=== PATIENT | female | born 1940 | race Caucasian/White ===

== ENCOUNTER 2019-02-23 10:04 | Emergency (ER) | payer OTHER ==
[~2019-02-23] VITALS: Ht 160 cm; Wt 77.3 kg
[2019-02-23] MEDS ORDERED: HYDR25TAB PO (10:53)
[2019-02-23] MEDS ORDERED: CVS500CA5 PO (10:53)
[2019-02-23] MEDS ORDERED: PRESCAP PO (10:53)
[2019-02-23] MEDS ORDERED: ALPR2TAB3 PO (10:53)
[2019-02-23] MEDS ORDERED: D-40TAB2 PO (10:53)
[2019-02-23] MEDS ORDERED: CITA20TA6 PO (10:53)
--- NOTE | 2019-02-23 11:04 | REP ---
Clinical: Trauma . Findings: Age-related atrophy and microvascular ischemic changes are appreciated. The ventricles and sulci are symmetric. Lara-white differentiation is maintained. There is no evidence for acute intracranial hemorrhage, mass/mass effect, pathology or infarction. No extra-axial fluid collection. Calvarium is intact. Paranasal sinuses and mastoid air cells are clear. Impression: Age related atrophy and microvascular ischemic changes. No acute intracranial hemorrhage, infarction, or mass/mass effect. Electronically Signed by Dawit Shepherd MD 02/23/2019 10:54 A
[2019-02-23] MEDS ORDERED: ALPRAZolam 0.5 MG TAB PO ONE (11:30)
[2019-02-23] MEDS ORDERED: BACIOIN5 OP (12:03)
[2019-02-23 13:02] VITALS: BP 156/69
== END 2019-02-23 13:15 | disposition home or self-care (01) ==
LOC: EDBD 10:04 → M ED 10:04
DX: S01.01XA Laceration without foreign body of scalp, initial encounter (principal); W22.8XXA Striking against or struck by other objects, initial encounter; Y92.018 Other place in single-family (private) house as the place of occurrence of the external cause; I10 Essential (primary) hypertension; F41.9 Anxiety disorder, unspecified; Z79.899 Other long term (current) drug therapy; Z88.0 Allergy status to penicillin; Z88.7 Allergy status to serum and vaccine; Z87.891 Personal history of nicotine dependence

== ENCOUNTER 2019-04-02 20:13 | Emergency (ER) | payer OTHER ==
[~2019-04-02] VITALS: Ht 160 cm; Wt 81.8 kg
[~2019-04-02 20:13] MED LIST: ALPR2TAB3 PO; BACIOIN5 OP; CITA20TA6 PO; CVS500CA5 PO; D-40TAB2 PO; HYDR25TAB PO; PRESCAP PO
[2019-04-02] MEDS ORDERED: PRES10CA2 PO (20:31)
--- NOTE | 2019-04-02 22:28 | REPVR ---
EXAM: CT Head Without Contrast EXAM DATE/TIME: 04/02/2019 9:25 PM CLINICAL HISTORY: 79 years old, female; Injury or trauma; Fall; Initial encounter; Concussion / head injury; Additional info: Fall, head injury TECHNIQUE: Imaging protocol: Computed tomography images of the head without contrast. Radiation optimization: All CT scans at this facility use at least one of these dose optimization techniques: automated exposure control; mA and/or kV adjustment per patient size (includes targeted exams where dose is matched to clinical indication); or iterative reconstruction. COMPARISON: CT Head without contrast 02/23/2019 10:33 AM FINDINGS: Brain: There is mild prominence of the peripheral sulci. Ventricles: There is mild prominence of the central ventricular system. Bones/joints: Unremarkable. No acute fracture. Sinuses: Visualized sinuses are unremarkable. No fluid levels. Mastoid air cells: Visualized mastoid air cells are well aerated. No mastoid effusion. Soft tissues: Unremarkable. IMPRESSION: There has been little change from 02/23/2019 with mild atrophic change. No acute interval intracranial process is identified. Electronically signed by: Juan West On 04/02/2019 22:28:06 PM
--- NOTE | 2019-04-02 22:38 | REPVR ---
EXAM: CT Cervical Spine Without Contrast EXAM DATE/TIME: 04/02/2019 9:25 PM CLINICAL HISTORY: 79 years old, female; Injury or trauma; Fall; Initial encounter; Concussion /head injury; Additional info: Fall, head injury TECHNIQUE: Imaging protocol: Computed tomography images of the cervical spine without contrast. Coronal and sagittal reformatted images were created and reviewed. Radiation optimization: All CT scans at this facility use at least one of these dose optimization techniques: automated exposure control; mA and/or kV adjustment per patient size (includes targeted exams where dose is matched to clinical indication); or iterative reconstruction. COMPARISON: No relevant prior studies available. FINDINGS: Vertebrae: No acute fracture. Normal alignment. C2-C3: Slight interspace narrowing with mild anterolisthesis with bilateral degenerative changes of the apophyseal joints. There is borderline left neural foraminal stenosis. C3-C4: Mild interspace narrowing with slight anterolisthesis and right paracentral posterior osteophytes and bilateral degenerative changes of apophyseal joints and right uncovertebral joints. There is slight narrowing of the right lateral recess with borderline spinal stenosis and mild right neural foraminal stenosis. C4-C5: Slight interspace narrowing with mild anterolisthesis and posterior central protrusion of the disc and bilateral degenerative changes. There is mild central canal stenosis and moderate right and mild left neural foraminal stenosis. C5-C6: Moderate interspace narrowing with moderate posterior osteophytes centered in the right of midline and bilateral degenerative changes. There is mild central canal stenosis centered to the right and mild right and borderline left neural foraminal stenosis. C6-C7: Ankylosis of the interspace and left apophyseal joints with minimal residual osteophytes and bilateral degenerative changes. There is mild right neural foraminal stenosis. C7-T1: Moderate interspace narrowing with no spinal or foraminal stenosis. There is ankylosis of the right apophyseal joints. Soft tissues: Unremarkable. Lungs: Lung apices are normal. IMPRESSION: 1. Multilevel degenerative changes with varying degrees of spinal and neural foraminal stenosis. 2. No acute fracture or subluxation. Electronically signed by: Juan West On 04/02/2019 22:38:32 PM
[2019-04-02] MEDS ORDERED: ACETAMINOPHEN TAB 650MG DOSE (2X325MG) PO ONE (23:00)
[2019-04-02 23:06] VITALS: O2SAT 99
[2019-04-02 23:32] VITALS: BP 142/76
--- NOTE | 2019-04-03 00:52 | REP ---
Clinical: Trauma. Technique: AP view of the pelvis with neutral and frog lateral views of the left hip. Findings: Age-related arthritic degenerative changes are appreciated. No acute fracture or dislocation identified. Impression: No acute fracture or dislocation. Electronically Signed by Dawit Shepherd MD 04/03/2019 12:44 A
== END 2019-04-02 23:38 | disposition home or self-care (01) ==
LOC: M ED 20:13
DX: S79.912A Unspecified injury of left hip, initial encounter (principal); S09.90XA Unspecified injury of head, initial encounter; S49.92XA Unspecified injury of left shoulder and upper arm, initial encounter; W18.39XA Other fall on same level, initial encounter; Y92.013 Bedroom of single-family (private) house as the place of occurrence of the external cause; I10 Essential (primary) hypertension; F41.1 Generalized anxiety disorder; Z88.0 Allergy status to penicillin; Z88.7 Allergy status to serum and vaccine

== ENCOUNTER → 2020-08-20 | Outpatient (CLI) | payer MEDICARE ==
[~2020-08-20] MED LIST changes: +ASPI81TA86 PO; +CLON1TAB17 PO; +D400400C PO; +FLUO40CA PO; +PRES10CA2 PO; +VITA400T15 PO
[2020-08-20 16:51] LABS: ALBUMIN 3.8 GM/DL (3.2-5.2); BILIRUBIN,TOTAL 0.4 MG/DL (0.2-1.0); CALCIUM LEVEL 9.4 MG/DL (8.8-10.2); CREATININE FOR GFR 2.02 MG/DL (0.55-1.30); GLOMERULAR FILTRATION RATE 25.4 (>39); POTASSIUM SERUM 5.1 MEQ/L (3.5-5.1); THYROID STIMULATING HORMONE 2.55 uIU/ML (0.358-3.740); TOTAL PROTEIN 7.5 GM/DL (6.4-8.2)
[2020-08-20 16:58] LABS: BASO # 0.1 10^3/uL (0.0-0.2); BASO % 0.6 % (0.0-1.0); EOS # 0.2 10^3/uL (0.0-0.5); EOS % 1.4 % (0.0-3.0); HEMATOCRIT 39.6 % (36.0-47.0); HEMOGLOBIN 12.4 g/dl (12.0-15.5); LYMPH # 1.4 10^3/uL (1.5-5.0); LYMPH % 11.6 % (24.0-44.0); MEAN CORPUSCULAR HGB CONC 31.3 g/dl (32.0-36.5); MEAN CORPUSCULAR VOLUME 95.7 fl (80.0-96.0); MONO # 0.9 10^3/uL (0.0-0.8); MONO % 7.4 % (0.0-5.0); NEUTROPHILS # 9.7 10^3/uL (1.5-8.5); NEUTROPHILS % 78.4 % (36.0-66.0); PLATELET COUNT, AUTOMATED 795 10^3/uL (150-450); RED BLOOD COUNT 4.14 10^6/uL (4.00-5.40); WHITE BLOOD COUNT 12.3 10^3/uL (4.0-10.0)
== END ==
LOC: M WUC 13:23
PROVIDERS: ATTEND Family Medicine
DX: R42 Dizziness and giddiness (principal); R44.2 Other hallucinations; Z79.899 Other long term (current) drug therapy

== ENCOUNTER 2020-08-27 12:52 | Inpatient (IN) | payer MEDICARE ==
[~2020-08-27] VITALS: Ht 154.9 cm; Wt 79.9 kg
--- NOTE | 2020-08-27 13:12 | REP ---
INDICATION: ams COMPARISON: 04/02/2019 TECHNIQUE: Axial noncontrast images from the skull base to the thoracic inlet with coronal reformations. This CT examination was performed using the following dose reduction techniques: Automated exposure control, adjustment of mA and/or kv according to the patient's size, and use of iterative reconstruction technique. FINDINGS: Age-related atrophy and microvascular ischemic changes are appreciated. The ventricles and sulci are symmetric. Lara-white differentiation is maintained. There is no evidence for acute intracranial hemorrhage, mass/mass effect, pathology or infarction. No extra-axial fluid collection. Calvarium is intact. Paranasal sinuses and mastoid air cells are clear. IMPRESSION: Age related atrophy and microvascular ischemic changes. No acute intracranial hemorrhage, infarction, or mass/mass effect. <Electronically signed by Dawit Shepherd > 08/27/20 [id number]
--- NOTE | 2020-08-27 13:14 | REP ---
INDICATION: trauma. COMPARISON: April 02, 2019.. TECHNIQUE: Helical scanning is acquired and overlapping 2 mm high resolution axial images were generated and reviewed at bone and soft tissue window settings. Coronal and sagittal multiplanar re-formations images are generated. FINDINGS: There is no evidence of cervical spine element fracture. No skull base fracture is seen. Cervical vertebral body heights are preserved. Alignment is normal. Facet joints are normally aligned bilaterally at each cervical level on multiplanar re-formations images. There is no evidence of intraspinal or paraspinal hematoma. No extra vertebral abnormality is seen. There are fairly advanced degenerative disc and facet changes. Degenerative disc disease most pronounced at C5-6 and C6-7 as on earlier study. There is osteoarthritic facet hypertrophy throughout the mid cervical spine bilaterally. There is straightening. No significant change from the comparison study April 02, 2019. At C5-6 there is central disc calcification which appears to impinge on the spinal canal. There is bilateral neural foraminal narrowing from uncovertebral spurring. IMPRESSION: No traumatic abnormality noted. Fairly advanced degenerative spondylosis changes stable from April 02, 2019.. <Electronically signed by Jalen Kelly > 08/27/20 [id number]
[2020-08-27 13:32] LABS: VENOUS HCO3 23.8 MEQ/L (23.0-27.0); VENOUS O2 SATURATION 77.5 % (60.0-80.0); VENOUS PARTIAL PRESSURE CO2 44.7 mmHg (38.0-50.0); VENOUS PARTIAL PRESSURE O2 42.2 mmHg (30.0-50.0); VENOUS PH 7.345 UNITS (7.330-7.430); VENOUS STANDARD HCO3 22.3 MEQ/L; VENOUS TOTAL CO2 25.2 MEQ/L (24.0-28.0)
[2020-08-27 13:35] LABS: BASO # 0.1 10^3/uL (0.0-0.2); BASO % 0.3 % (0.0-1.0); HEMATOCRIT 41.7 % (36.0-47.0); LYMPH # 0.8 10^3/uL (1.5-5.0); LYMPH % 3.8 % (24.0-44.0); MEAN CORPUSCULAR HEMOGLOBIN 29.1 pg (27.0-33.0); MEAN CORPUSCULAR HGB CONC 31.2 g/dl (32.0-36.5); MEAN CORPUSCULAR VOLUME 93.5 fl (80.0-96.0); MONO # 1.3 10^3/uL (0.0-0.8); MONO % 6.6 % (0.0-5.0); NEUTROPHILS # 17.7 10^3/uL (1.5-8.5); NEUTROPHILS % 88.7 % (36.0-66.0); PLATELET COUNT, AUTOMATED 969 10^3/uL (150-450); RED BLOOD COUNT 4.46 10^6/uL (4.00-5.40); WHITE BLOOD COUNT 19.9 10^3/uL (4.0-10.0)
--- NOTE | 2020-08-27 13:51 | REP ---
INDICATION: Altered Mental Status. COMPARISON: No comparison study. TECHNIQUE: Portable upright AP chest radiograph. FINDINGS: The lungs are well inflated and free of infiltrate. Pleural angles are sharp. Heart size is normal. Pulmonary vasculature is not increased. There is mild bibasilar interstitial fibrosis. The aorta is tortuous. There are osteoarthritic changes in the glenohumeral joints bilaterally. IMPRESSION: No active disease. <Electronically signed by Jalen Kelly > 08/27/20 [id number]
[2020-08-27 14:14] LABS: OSMOLALITY SERUM 308 MOSM/KG (280-301)
[2020-08-27 14:20] LABS: ACETAMINOPHEN LEVEL < 2.0 UG/ML (10.0-30.0); ALBUMIN 3.7 GM/DL (3.2-5.2); ALT/SGPT 39 U/L (12-78); BILIRUBIN,DIRECT 0.2 MG/DL (0.0-0.2); BILIRUBIN,TOTAL 0.7 MG/DL (0.2-1.0); BLOOD UREA NITROGEN 36 MG/DL (7-18); CALCIUM LEVEL 9.6 MG/DL (8.8-10.2); CARBON DIOXIDE LEVEL 28 MEQ/L (21-32); CHLORIDE LEVEL 105 MEQ/L (98-107); CPK CREATINE PHOSPHOKINASE 858 U/L (26-192); CREATININE FOR GFR 1.25 MG/DL (0.55-1.30); ETHYL ALCOHOL (ETHANOL) < 0.003 % (0.000-0.010); GLOMERULAR FILTRATION RATE 44.1 (>39); GLUCOSE, FASTING 117 MG/DL (70-100); POTASSIUM SERUM 4.6 MEQ/L (3.5-5.1); SALICYLATE LEVEL 1.8 MG/DL (5.0-30.0); SODIUM LEVEL 142 MEQ/L (136-145); THYROID STIMULATING HORMONE 0.861 uIU/ML (0.358-3.740); TOTAL PROTEIN 7.5 GM/DL (6.4-8.2)
[2020-08-27 14:31] LABS: AMPHETAMINES LEVEL URINE NEGATIVE (NEGATIVE); BARBITURATES URINE NEGATIVE (NEGATIVE); BENZODIAZEPINES URINE NEGATIVE (NEGATIVE); CANNABINOIDS URINE NEGATIVE (NEGATIVE); COCAINE METABOLITE URINE NEGATIVE (NEGATIVE); METHADONE URINE NEGATIVE (NEGATIVE); OPIATES URINE NEGATIVE (NEGATIVE); PHENCYCLIDINE URINE NEGATIVE (NEGATIVE)
[2020-08-27] MEDS ORDERED: NS 1,000 ML IV SCH (15:15)
[2020-08-27] MEDS ORDERED: FLUO20CA22 PO (15:18)
[2020-08-27] MEDS ORDERED: D400400C PO (15:18)
[2020-08-27] MEDS ORDERED: KETO2CR TOP (15:18)
[2020-08-27 15:55] LABS: RSV AMPLIFICATION NEGATIVE (NEGATIVE)
[2020-08-27] MEDS ORDERED: CEFD1CAP8 PO (16:52)
[2020-08-27] MEDS ORDERED: ASPI81TA26 PO (16:52)
[2020-08-27] MEDS ORDERED: CLON0.5T2 PO (16:52)
--- NOTE | 2020-08-27 18:01 | REP ---
INDICATION: fall. COMPARISON: Comparison pelvic radiograph is from April 02, 2019.. TECHNIQUE: Single AP radiograph, portably obtained. FINDINGS: The bony pelvic ring is intact. No fracture is seen. There is diffuse osteopenia. Femoral heads are smooth and rounded. Hip joint spaces are preserved. No hip fracture is seen. There are degenerative disc and osteoarthritic facet changes in the lumbar spine. Sacrum appears intact. The visualized bowel gas pattern is unremarkable. IMPRESSION: No traumatic abnormality noted. <Electronically signed by Jalen Kelly > 08/27/20 [id number]
[2020-08-27] MEDS: NS 1,000 ML IV SCH ×2 (18:20→23:37)
[2020-08-27 22:00] VITALS: BP 155/74
--- NOTE | 2020-08-27 22:51 | HPEPDOC ---
General Date of Admission 08/27/20 Date of Service: Aug 27, 2020 Chief Complaint The patient is a 80-year-old female admitted with a reason for visit of Neuro Symptoms. 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 For EMS she was awake and alert to only name. As per niece she has been having hallucinations auditory and visual for about 1 week. In the ED she was hypothermic on arrival , confused knew only her name . For me she knew she was in the hospital could not tell me where or what her home address was. She could not tell me what had happened at home. She thinks she is living with her and asked about her mother in law and her mother. She thinks there has been an accident and something had happened to them. She was following simple commands and answering simple questions but her answers were unreliable. As per daughter she spoke to patient on Wednesday. Yesterday night she could not get hold of her so she this morning and there was no answer so patient's sister in law went to check on her. As per daughter due to her hallucination over the last 1 to 2 weeks she was check ed found to have an UTI and treated with Cefdinir from 08/20/20. She was admitted for Acute metabolic encephalopathy. Home Medications Scheduled Aspirin (Aspirin EC) 81 Mg Tablet.dr, 81 MG PO DAILY, (Reported) Cefdinir (Cefdinir) 300 Mg Capsule, 300 MG PO DAILY, (Reported) FOR 10 DAYS, FILLED 08/20 Cholecalciferol (Vitamin D3) (Vitamin D3) 10 Mcg Capsule, 800 UNITS PO DAILY, (Reported) Clonazepam (Clonazepam) 0.5 Mg Tablet, 0.5 MG PO DAILY, (Reported) Cranberry Fruit Extract (Cranberry) 500 Mg Capsule, 500 MG PO DAILY, (Reported) Fluoxetine Hcl (Fluoxetine HCl) 20 Mg Capsule, 20 MG PO DAILY, (Reported) Allergies Coded Allergies: Tetanus Vaccines and Toxoid (Verified Allergy, Mild, entire arms swells, 02/23/19) Penicillins (Verified Adverse Reaction, Mild, vomiting, 02/23/19) Past Medical History Medical History 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 Patient had refused bone marrow biopsy. Chronic kidney disease Hypertension. Chronic kidney disease Hypertension. Macular degeneration Anxiety. 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 Parkinson Surgical History tonsillectomy cervical surgery in [address] [facility] Family History The patient's father at the age of approximately 55 from organic heart disease. The patient's mother at the age of 55 from a motor vehicle trauma. The patient has one daughter who is healthy. Social History * Smoker: former Smoker Alcohol: Denies Drugs: denies A-FIB/CHADSVASC A-FIB History Current/History of A-Fib/PAF?: No Review of Systems Constitutional: Reports: Weakness; Denies: Chills, Fever, Night Sweats Eyes: Denies: Pain, Vision change ENT: Denies: Head Aches, Ear Pain, Dysphagia Skin: Denies: Rash, Lesions, Breakdown Pulmonary: Denies: Dyspnea, Cough Cardiovascular: Denies: Chest Pain, Palpitations, Orthopnea, Paroxysmal Noc. Dyspnea, Lt Headedness Gastrointestinal: Denies: Nausea, Vomiting, Abdominal Pain, Diarrhea Genitourinary: Denies: Dysuria, Frequency, Incontinence, Retention Hematologic: Denies: Bruising, Bleeding Excessively Musculoskeletal: Reports: Back Pain, Shoulder Pain Neurological: Reports: Confusion Psych: Reports: Memory Issues Physical Examination General Exam: Positive: Alert, Cooperative, No Acute Distress, Other (confused ) Eye Exam: Positive: PERRLA, Conjunctiva & lids normal, EOMI; Negative: Sclera icteric ENT Exam: Positive: Pharynx Normal, Tongue Midline, Other ENT (dry mucous membranes. ) Neck Exam: Positive: Supple; Negative: JVD, thyromegaly Chest Exam: Positive: Clear to auscultation, Normal air movement Heart Exam: Positive: Rate Normal, Regular Rhythm, Normal S1, Normal S2; Negative: Murmurs, Rubs Abdomen Exam: Positive: Normal bowel sounds, Soft; Negative: Tenderness, Hepatospenomegaly Extremity Exam: Positive: Edema, Normal pulses, Other (blister on toe); Negative: Clubbing, Cyanosis Neuro Exam: Positive: Normal Speech, Normal Tone, Other (tremors) Vital Signs Vital Signs Date Time Temp Pulse Resp B/P (MAP) Pulse Ox O2 Delivery O2 Flow Rate FiO2 08/27/20 15:01 97.1 87 20 113/59 (77) 97 Room Air Laboratory Data Labs 24H Laboratory Tests 2 08/27/20 13:22: Anion Gap 9, Glomerular Filtration Rate 44.1, Osmolality 308H, Calcium Level 9.6, Total Bilirubin 0.7, Direct Bilirubin 0.2, Aspartate Amino Transf (AST/SGOT) 65H, Alanine Aminotransferase (ALT/SGPT) 39, Alkaline Phosphatase 107, Total Creatine Kinase 858H, Total Protein 7.5, Albumin 3.7, Albumin/Globulin Ratio 1.0L, Thyroid Stimulating Hormone (TSH) 0.861, Salicylates Level 1.8L, Acetaminophen Level < 2.0L, Ethyl Alcohol Level < 0.003 08/27/20 13:23: Immature Granulocyte % (Auto) 0.6, Neutrophils (%) (Auto) 88.7H, Lymphocytes (%) (Auto) 3.8L, Monocytes (%) (Auto) 6.6H, Eosinophils (%) (Auto) 0.0, Basophils (%) (Auto) 0.3, Neutrophils # (Auto) 17.7H, Lymphocytes # (Auto) 0.8L, Monocytes # (Auto) 1.3H, Eosinophils # (Auto) 0.0, Basophils # (Auto) 0.1, Nucleated Red Blood Cells % (auto) 0.0, POC Glucose (Misc Panel) 118H, POC Sodium (Misc Panel) 142, POC Potassium (Misc Panel) 4.1, POC Chloride (Misc Panel) 105, POC Total CO2 (Misc Panel) 28.0H, POC Blood Urea Nitrogen (Misc Panel 35H, POC Ionized Calcium (Misc Panel) 4.7, POC Creatinine (Misc Panel) 1.1, POC Hematocrit (Misc Panel) 42.0, Blood Gas Bicarbonate Standard 22.3, Venous Blood pH 7.345, Venous Blood Partial Pressure CO2 44.7, Venous Blood Partial Pressure O2 42.2, Venous Blood Total Carbon Dioxide 25.2, Venous Blood HCO3 23.8, Venous Blood Oxygen Saturation 77.5, Venous Blood Base Excess -2.0, Lactic Acid Level 1.6, Ammonia < 10 08/27/20 13:25: POC Troponin I (Misc) 0.10H 08/27/20 13:34: Urine Color YELLOW, Urine Appearance CLEAR, Urine pH 5.0, Urine Specific [place] 1.012, Urine Protein 2+H, Urine Glucose (UA) NEGATIVE, Urine Ketones TRACEH, Urine Blood 2+H, Urine Nitrite NEGATIVE, Urine Bilirubin NEGATIVE, Urine Urobilinogen 0.2, Urine Leukocyte Esterase NEGATIVE, Urine WBC (Auto) 1, Urine RBC (Auto) 1, Urine Hyaline Casts (Auto) 0, Urine Bacteria (Auto) 1+H, Urine Squamous Epithelial Cells 0, Urine Mucus (Auto) SMALL, Urine Sperm (Auto) , Urine Opiates Screen NEGATIVE, Urine Methadone Screen NEGATIVE, Urine Barbiturates Screen NEGATIVE, Urine Phencyclidine Screen NEGATIVE, Urine Amphetamines Screen NEGATIVE, Urine Benzodiazepines Screen NEGATIVE, Urine Cocaine Metabolite Screen NEGATIVE, Urine Cannabinoids Screen NEGATIVE 08/27/20 14:57: Coronavirus (COVID-19)(PCR) NEGATIVE, Influenza Type A (RT-PCR) NEGATIVE, Influenza Type B (RT-PCR) NEGATIVE, Respiratory Syncytial Virus (PCR) NEGATIVE CBC/BMP Laboratory Tests 08/27/20 13:22 08/27/20 13:23 Microbiology Microbiology 08/27/20 Blood Culture, Received Pending 08/27/20 Blood Culture, Received Pending Assessment/Plan 80 year old female with h/o thrombocytosis, anxiety, macular degeneration, legally blind, 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 For EMS she was awake and alert to only name. As per sister in law she has been having hallucinations auditory and visual for about 1 to 2 weeks. She could not tell me what had happened at home. She thinks she is living with her and asked about her mother in law and her mother. She was following simple commands and answering simple questions but her answers were unreliable. As per daughter she spoke to patient on Wednesday night. Yesterday night she could not get hold of her so she called this morning and there was still no answer so patient's sister in law went to check on her. As per daughter due to her hallucinations over the last 1 to 2 weeks she was checked found to have an UTI and treated with Cefdinir from 08/20/20. She was admitted for Acute metabolic encephalopathy. Acute Metabolic encephalopathy No signs of infection noted though her WBC is high and she was hypothermic her cxr is clear her UA is jose maria rand she does not have any abdominal complaints. I think the elevated WBC and the hypothermia is reactive to laying on shonna floor 24 hours or more. Blood cultures have been ordered will follow. Sitter if needed. Rule out stroke in view of high platelet counts he is at high risk for thrombosis. MRI and MRA ordered. Continue ASA. Fall and rhabdomyolysis IVF. ? Dementia with possible parkinson's disease. Patient noted to have increasing tremors by family at rest and has stated having hallucinations. could have underlying parkinson's dementia. Macular degeneration/ legally blind fall risk. Thrombocytosis consulted Oncology recommended to start hydroxyurea 1000 mg daily with the goal to bring down the count to < 450. Abdominal US to check for liver and spleen size. will continue IVF Chronic kidney disease creatinine better than baseline. H/o Hypertension. not on any meds will monitor. Anxiety. will hold home meds. Tremors ? Parkinson's with possible dementia. Plan / VTE VTE Prophylaxis Ordered?: Yes ALIA BROCK MD Aug 27, 2020 16:20
[2020-08-27] MEDS: HYDROXYUREA 500 MG CAP PO SCH (23:13)
[2020-08-28 06:00] VITALS: BP 150/74
[2020-08-28 06:35] LABS: BASO # 0.1 10^3/uL (0.0-0.2); BASO % 0.4 % (0.0-1.0); EOS # 0.1 10^3/uL (0.0-0.5); EOS % 0.9 % (0.0-3.0); HEMATOCRIT 35.1 % (36.0-47.0); LYMPH # 1.3 10^3/uL (1.5-5.0); LYMPH % 9.3 % (24.0-44.0); MEAN CORPUSCULAR HEMOGLOBIN 29.3 pg (27.0-33.0); MEAN CORPUSCULAR HGB CONC 30.8 g/dl (32.0-36.5); MEAN CORPUSCULAR VOLUME 95.4 fl (80.0-96.0); MONO # 1.3 10^3/uL (0.0-0.8); MONO % 9.3 % (0.0-5.0); NEUTROPHILS % 79.5 % (36.0-66.0); RED BLOOD COUNT 3.68 10^6/uL (4.00-5.40); WHITE BLOOD COUNT 13.9 10^3/uL (4.0-10.0)
[2020-08-28 06:50] LABS: HEMOGLOBIN 10.8 g/dl (12.0-15.5)
[2020-08-28 06:51] LABS: PLATELET COUNT, AUTOMATED 740 10^3/uL (150-450)
[2020-08-28 07:07] LABS: BLOOD UREA NITROGEN 37 MG/DL (7-18); CALCIUM LEVEL 8.9 MG/DL (8.8-10.2); CARBON DIOXIDE LEVEL 27 MEQ/L (21-32); CHLORIDE LEVEL 111 MEQ/L (98-107); CREATININE FOR GFR 1.45 MG/DL (0.55-1.30); GLOMERULAR FILTRATION RATE 37.2 (>39); GLUCOSE, FASTING 78 MG/DL (70-100); POTASSIUM SERUM 4.4 MEQ/L (3.5-5.1); SODIUM LEVEL 144 MEQ/L (136-145)
--- NOTE | 2020-08-28 07:28 | ECGEPIP ---
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
--- NOTE | 2020-08-28 07:42 | IPNPDOC ---
Subjective Date Seen The patient was seen on 08/28/20. Subjective Chief Complaint/HPI Still confused and cannot remember the events of the past few days. Though more interactive and answers simple questions. Was calm and cooperative this morning but was agitated last night pulling out IVs. Objective Physical Examination General Exam: Positive: Alert, Cooperative, No Acute Distress, Other (confused ) Eye Exam: Positive: PERRLA, Conjunctiva & lids normal, EOMI; Negative: Sclera icteric ENT Exam: Positive: Pharynx Normal, Tongue Midline, Other ENT (dry mucous membranes. 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 For EMS she was awake and alert to only name. As per sister in law she has been having hallucinations auditory and visual for about 1 to 2 weeks. She could not tell me what had happened at home. She thinks she is living with her and asked about her mother in law and her mother. She was following simple commands and answering simple questions but her answers were unreliable. As per daughter she spoke to patient on Wednesday night. Yesterday night she could not get hold of her so she called this morning and there was still no answer so patient's sister in law went to check on her. As per daughter due to her hallucinations over the last 1 to 2 weeks she was checked found to have an UTI and treated with Cefdinir from 08/20/20. She was admitted for Acute metabolic encephalopathy. Acute Metabolic encephalopathy No signs of infection noted though her WBC is high and she was hypothermic her cxr is clear her UA is clear and she does not have any abdominal complaints. I think the elevated WBC and the hypothermia is reactive to laying on the floor 24 hours or more. WBC better today. Hypothermia resolved with warming blankets. Blood cultures have been ordered will follow. Sitter if needed. Rule out stroke in view of high platelet counts she is at high risk for thrombosis. MRI and MRA ordered. Continue ASA. ? Dementia with possible Parkinson's disease. Patient noted to have increasing tremors by family at rest and has stated having hallucinations. could have underlying Parkinson's dementia. Fall and rhabdomyolysis continue IVF. Thrombocytosis a little better today. consulted Oncology recommended to start hydroxyurea 1000 mg daily with the goal to bring down the count to < 450. Abdominal US to check for liver and spleen size. will continue IVF CKD stage 3 baseline creatinine around 1.5 creatinine at baseline will monitor. Macular degeneration/ legally blind fall risk. Chronic kidney disease creatinine better than baseline. H/o Hypertension. not on any meds will monitor. Anxiety. will hold home meds. Tremors ? Parkinson's with possible dementia. Plan/VTE VTE Prophylaxis Ordered?: Yes VS[facility] Vital Signs Date Time Temp Pulse Resp B/P (MAP) Pulse Ox O2 Delivery O2 Flow Rate FiO2 08/28/20 06:00 97.0 87 17 150/74 (99) 98 Room Air I&O- Last 24 Hours up to 6 AM 08/28/20 05:59 Intake Total 962 ml Output Total 400 ml Balance 562 ml Laboratory Data 24H LABS Laboratory Tests 2 08/27/20 13:22: Anion Gap 9, Glomerular Filtration Rate 44.1, Osmolality 308H, Calcium Level 9.6, Total Bilirubin 0.7, Direct Bilirubin 0.2, Aspartate Amino Transf (AST/SGOT) 65H, Alanine Aminotransferase (ALT/SGPT) 39, Alkaline Phosphatase 107, Total Creatine Kinase 858H, Total Protein 7.5, Albumin 3.7, Albumin/Globulin Ratio 1.0L, Thyroid Stimulating Hormone (TSH) 0.861, Salicylates Level 1.8L, Acetaminophen Level < 2.0L, Ethyl Alcohol Level < 0.003 08/27/20 13:23: Immature Granulocyte % (Auto) 0.6, Neutrophils (%) (Auto) 88.7H, Lymphocytes (%) (Auto) 3.8L, Monocytes (%) (Auto) 6.6H, Eosinophils (%) (Auto) 0.0, Basophils (%) (Auto) 0.3, Neutrophils # (Auto) 17.7H, Lymphocytes # (Auto) 0.8L, Monocytes # (Auto) 1.3H, Eosinophils # (Auto) 0.0, Basophils # (Auto) 0.1, Nucleated Red Blood Cells % (auto) 0.0, POC Glucose (Misc Panel) 118H, POC Sodium (Misc Panel) 142, POC Potassium (Misc Panel) 4.1, POC Chloride (Misc Panel) 105, POC Total CO2 (Misc Panel) 28.0H, POC Blood Urea Nitrogen (Misc Panel 35H, POC Ionized Calcium (Misc Panel) 4.7, POC Creatinine (Misc Panel) 1.1, POC Hematocrit (Misc Panel) 42.0, Blood Gas Bicarbonate Standard 22.3, Venous Blood pH 7.345, Venous Blood Partial Pressure CO2 44.7, Venous Blood Partial Pressure O2 42.2, Venous Blood Total Carbon Dioxide 25.2, Venous Blood HCO3 23.8, Venous Blood Oxygen Saturation 77.5, Venous Blood Base Excess -2.0, Lactic Acid Level 1.6, Ammonia < 10 08/27/20 13:25: POC Troponin I (Misc) 0.10H 08/27/20 13:34: Urine Color YELLOW, Urine Appearance CLEAR, Urine pH 5.0, Urine Specific [place] 1.012, Urine Protein 2+H, Urine Glucose (UA) NEGATIVE, Urine Ketones TRACEH, Urine Blood 2+H, Urine Nitrite NEGATIVE, Urine Bilirubin NEGATIVE, Urine Urobilinogen 0.2, Urine Leukocyte Esterase NEGATIVE, Urine WBC (Auto) 1, Urine RBC (Auto) 1, Urine Hyaline Casts (Auto) 0, Urine Bacteria (Auto) 1+H, Urine Squamous Epithelial Cells 0, Urine Mucus (Auto) SMALL, Urine Sperm (Auto) , Urine Opiates Screen NEGATIVE, Urine Methadone Screen NEGATIVE, Urine Barbiturates Screen NEGATIVE, Urine Phencyclidine Screen NEGATIVE, Urine Amphetamines Screen NEGATIVE, Urine Benzodiazepines Screen NEGATIVE, Urine Cocaine Metabolite Screen NEGATIVE, Urine Cannabinoids Screen NEGATIVE 08/27/20 14:57: Coronavirus (COVID-19)(PCR) NEGATIVE, Influenza Type A (RT-PCR) NEGATIVE, Influenza Type B (RT-PCR) NEGATIVE, Respiratory Syncytial Virus (PCR) NEGATIVE 08/28/20 06:06: Immature Granulocyte % (Auto) 0.6, Neutrophils (%) (Auto) 79.5H, Lymphocytes (%) (Auto) 9.3L, Monocytes (%) (Auto) 9.3H, Eosinophils (%) (Auto) 0.9, Basophils (%) (Auto) 0.4, Neutrophils # (Auto) 11.0H, Lymphocytes # (Auto) 1.3L, Monocytes # (Auto) 1.3H, Eosinophils # (Auto) 0.1, Basophils # (Auto) 0.1, Nucleated Red Blood Cells % (auto) 0.0, Anion Gap 6L, Glomerular Filtration Rate 37.2L, Calcium Level 8.9 CBC/BMP Laboratory Tests 08/27/20 13:22 08/27/20 13:23 08/28/20 06:06 Microbiology Microbiology 08/27/20 Blood Culture, Received Pending 08/27/20 Blood Culture, Received Pending ALIA BROCK MD Aug 28, 2020 07:42
[2020-08-28] MEDS: ENOXAPARIN 40MG/0.4ML SYRINGE (J1650 PER 10MG) SC SCH (09:00)
[2020-08-28] MEDS: ASPIRIN 81 MG ENTERIC TAB PO SCH (09:06)
--- NOTE | 2020-08-28 11:02 | REPVR ---
PROCEDURE INFORMATION: Exam: MR Head Without Contrast Exam date and time: 08/28/2020 10:52 AM Age: 80 years old Clinical indication: Altered mental status/memory loss; Confusion or disorientation; Patient HX: AMS, aphasia, ; additional info: Stroke TECHNIQUE: Imaging protocol: MR of the head without contrast. COMPARISON: CT Head without contrast 08/27/2020 12:54 PM FINDINGS: Brain: There are tortuous flow voids within the left parietal lobe, compatible with arteriovenous malformation. There is no hemorrhage. Moderate diffuse volume loss is within the range of normal for patient age. There is focally increased T2/FLAIR hyperintensity within the left periventricular white matter, potentially small vessel ischemia versus gliosis. There is no diffusion restriction. Cerebral ventricles: Prominence of the ventricular system is commensurate with volume loss. Bones/joints: Unremarkable. Paranasal sinuses: Normal as visualized. No acute sinusitis. Mastoid air cells: Normal as visualized. No mastoid effusion. Orbits: Unremarkable. Soft tissues: Unremarkable. IMPRESSION: 1. Left parietal arteriovenous malformation. No associated hemorrhage. 2. Chronic changes. Electronically signed by: Gina Pal On 08/28/2020 11:02:59 AM
--- NOTE | 2020-08-28 11:05 | REPVR ---
PROCEDURE INFORMATION: Exam: MR Angiogram Head Without Contrast, Arteries Exam date and time: 08/28/2020 10:52 AM Age: 80 years old Clinical indication: Cognitive deficit; Altered mental status; Patient HX: AMS, aphasia, ; additional info: Stroke TECHNIQUE: Imaging protocol: MR angiogram head without contrast. Exam focused on the arteries. 3D rendering (Not supervised by radiologist): MIP and/or 3D reconstructed images were created by the technologist. COMPARISON: CT Head without contrast 08/27/2020 12:54 PM FINDINGS: ANTERIOR CIRCULATION: Right internal carotid artery: Intracranial segment is patent with no significant stenosis. No aneurysm. Right middle cerebral artery: No occlusion or significant stenosis. No aneurysm. Right anterior cerebral artery: No occlusion or significant stenosis. No aneurysm. Left internal carotid artery: Intracranial segment is patent with no significant stenosis. No aneurysm. Left middle cerebral artery: No occlusion or significant stenosis. No aneurysm. Left anterior cerebral artery: No occlusion or significant stenosis. No aneurysm. POSTERIOR CIRCULATION: Right vertebral artery: No occlusion or significant stenosis. No aneurysm. Left vertebral artery: No occlusion or significant stenosis. No aneurysm. Basilar artery: No occlusion or significant stenosis. No aneurysm. Right posterior cerebral artery: No occlusion or significant stenosis. No aneurysm. Left posterior cerebral artery: No occlusion or significant stenosis. No aneurysm. Other vasculature: Left parietal arteriovenous malformation is again noted. It appears to be supplied by branches of the left posterior cerebral artery. IMPRESSION: Left parietal arteriovenous malformation. Electronically signed by: Gina Pal On 08/28/2020 11:05:57 AM
--- NOTE | 2020-08-28 12:08 | REP ---
INDICATION: thrombosis, hepatomegaly and splenomegaly COMPARISON: None TECHNIQUE: Real time B-mode hancock scale ultrasound examination using curved array transducer. FINDINGS: Examination is limited due to patient's inability to cooperate. Limited evaluation of the liver demonstrates no obvious focal lesion and no evidence for hepatomegaly. The gallbladder is grossly unremarkable and without obvious wall thickening or gallstones. No biliary ductal dilatation is appreciated and the common bile duct measures 4 mm diameter. The spleen is normal and measures 8.2 x 8.0 x 5.2 cm (splenic index: 341). No focal splenic lesions are identified. Left kidney is not identified. The right kidney measures 10.9 x 5.0 x 5.6 cm and includes scattered cysts measuring up to 3.3 cm. No hydronephrosis or obvious nephrolithiasis. Visualized abdominal aorta demonstrates atherosclerotic changes and infrarenal aneurysm measuring 3.5 cm maximal diameter and 3.1 cm in craniocaudal length. No ascites noted. IMPRESSION: 1. Significantly limited examination. No evidence for hepatomegaly or obvious focal hepatic lesion. No evidence for splenomegaly. 2. Right renal simple and complex cysts up to 3.3 cm. Left kidney not visualized. 3. Focal mid abdominal aortic aneurysm measuring 3.5 cm maximal diameter. <Electronically signed by Dawit Shepherd > 08/28/20 [id number]
[2020-08-28] MEDS: NS 1,000 ML IV SCH ×2 (12:45→17:08)
[2020-08-28 14:00] VITALS: BP 121/87
[2020-08-28 16:50] LABS: VITAMIN B12 LEVEL 222 PG/ML (247-911)
--- NOTE | 2020-08-28 19:12 | CR.PDOC ---
General Date of Consultation: Aug 28, 2020 Consultation REASON FOR CONSULTATION/CHIEF COMPLAINT: [abnormal CBC , elevated platelet s]. HISTORY OF PRESENT ILLNESS: [This is an 80 year old lady. She was admitted with altered mental status , hypothermia She had very high platelet count. She has a history of a high platelet count. ]. ALLERGIES: Please see below. HOME MEDICATIONS: Please see below. PAST MEDICAL HISTORY: 1. [renal disease ]. 2. macular degeneration 3. skin cancer . PAST SURGICAL HISTORY: 1. [skin cancer removal forehead skin graft 2. FAMILY HISTORY: Father: Mother: Siblings: Children: Hereditary Diseases: Unexpected deaths due to medical reasons: SOCIAL HISTORY: Marital status and/or living arrangements: Children: Employment: Tobacco use: ETOH: Illicit drug use: IV drug use: Other relevant social factors: REVIEW OF SYSTEMS: CONSTITUTIONAL: [no fever, no chill s]. HEENT: .no head aches CARDIOVASCULAR: [no chest pain ]. RESPIRATORY: no dyspnea . GENITOURINARY: . MUSCULOSKELETAL: . GASTROINTESTINAL: . SKIN: . NEUROLOGICAL: [no memory of coming to the Hospital ]. PSYCHIATRIC: . ENDOCRINE: . HEMATOLOGIC/LYMPHATIC: . ALLERGIC/IMMUNOLOGIC: . PHYSICAL EXAMINATION: VITAL SIGNS: Please see below. GENERAL APPEARANCE: [awake and alert . oriented to person, responds normally . HEENT: [large old graft mid forehead ]. RESPIRATORY: .no wheezing CARDIOVASCULAR: .regular at the time of my exam ABDOMEN: .soft EXTREMITIES: . NEUROLOGICAL: . PSYCHIATRIC: . LABORATORY DATA: Please see below. ASSESSMENT/PLAN: 1. .thrombocytosis chronic but worse than previously documented. 2. . low B12 level risk for blood clots with high platelet count. ultrasound did not show a large spleen or large liver plan; Hydrea to control platelet count check for Iron deficiency replace B12 Aspirin to reduce risk for blood clots. Repeat her JAK2. follow up in the office after discharge Vital Signs/I&O Vital Signs Date Time Temp Pulse Resp B/P (MAP) Pulse Ox O2 Delivery O2 Flow Rate FiO2 08/28/20 14:00 98.7 78 18 121/87 (98) 100 Room Air I&O- Last 24 Hours up to 6 AM 08/28/20 06:00 Intake Total 962 ml Output Total 400 ml Balance 562 ml Laboratory Data Labs 24H Laboratory Tests 2 08/28/20 06:06: Immature Granulocyte % (Auto) 0.6, Neutrophils (%) (Auto) 79.5H, Lymphocytes (%) (Auto) 9.3L, Monocytes (%) (Auto) 9.3H, Eosinophils (%) (Auto) 0.9, Basophils (%) (Auto) 0.4, Neutrophils # (Auto) 11.0H, Lymphocytes # (Auto) 1.3L, Monocytes # (Auto) 1.3H, Eosinophils # (Auto) 0.1, Basophils # (Auto) 0.1, Nucleated Red Blood Cells % (auto) 0.0, Anion Gap 6L, Glomerular Filtration Rate 37.2L, Calcium Level 8.9, Vitamin B12 Level 222L, Syphilis Serology NONREACTIVE CBC/BMP Laboratory Tests 08/28/20 06:06 Microbiology Microbiology 08/27/20 Blood Culture - Preliminary, Resulted No growth after 24 hours . All specim... 08/27/20 Blood Culture - Preliminary, Resulted No growth after 24 hours . All specim... Allergies Coded Allergies: Tetanus Vaccines and Toxoid (Verified Allergy, Mild, entire arms swells, 02/23/19) Penicillins (Verified Adverse Reaction, Mild, vomiting, 02/23/19) Home Medications Scheduled Aspirin (Aspirin EC) 81 Mg Tablet.dr, 81 MG PO DAILY, (Reported) Cefdinir (Cefdinir) 300 Mg Capsule, 300 MG PO DAILY, (Reported) FOR 10 DAYS, FILLED 08/20 Cholecalciferol (Vitamin D3) (Vitamin D3) 10 Mcg Capsule, 800 UNITS PO DAILY, (Reported) Clonazepam (Clonazepam) 0.5 Mg Tablet, 0.5 MG PO DAILY, (Reported) Cranberry Fruit Extract (Cranberry) 500 Mg Capsule, 500 MG PO DAILY, (Reported) Fluoxetine Hcl (Fluoxetine HCl) 20 Mg Capsule, 20 MG PO DAILY, (Reported) ИРИНА SOLORIO MD Aug 28, 2020 19:12
[2020-08-28] MEDS: HYDROXYUREA 500 MG CAP PO SCH (20:00)
[2020-08-28] MEDS: QUEtiapine FUMARATE 25 MG TAB PO SCH (20:00)
[2020-08-28 22:00] VITALS: BP 136/56
[2020-08-29] MEDS: NS 1,000 ML IV SCH (05:35)
[2020-08-29 06:00] VITALS: BP 145/62
[2020-08-29 06:26] LABS: BASO # 0.1 10^3/uL (0.0-0.2); BASO % 0.5 % (0.0-1.0); EOS # 0.5 10^3/uL (0.0-0.5); HEMATOCRIT 32.7 % (36.0-47.0); HEMOGLOBIN 10.3 g/dl (12.0-15.5); MEAN CORPUSCULAR HEMOGLOBIN 30.3 pg (27.0-33.0); MEAN CORPUSCULAR HGB CONC 31.5 g/dl (32.0-36.5); MEAN CORPUSCULAR VOLUME 96.2 fl (80.0-96.0); MONO % 8.7 % (0.0-5.0); NEUTROPHILS # 7.6 10^3/uL (1.5-8.5); NEUTROPHILS % 68.4 % (36.0-66.0); PLATELET COUNT, AUTOMATED 585 10^3/uL (150-450); WHITE BLOOD COUNT 11.1 10^3/uL (4.0-10.0)
[2020-08-29 07:02] LABS: CALCIUM LEVEL 8.2 MG/DL (8.8-10.2); CREATININE FOR GFR 1.24 MG/DL (0.55-1.30); GLOMERULAR FILTRATION RATE 44.5 (>39); PERCENT SATURATION 16.9 % (13.2-45.0)
[2020-08-29] MEDS: CYANOCOBALAMIN 1,000MCG/ML VIAL (J3420) IM SCH (09:55)
[2020-08-29] MEDS: ENOXAPARIN 40MG/0.4ML SYRINGE (J1650 PER 10MG) SC SCH (09:55)
[2020-08-29] MEDS: ASPIRIN 81 MG ENTERIC TAB PO SCH (09:55)
[2020-08-29] MEDS: NYSTATIN 100,000 UNITS/GM TOPICAL PWD 15 GM TOP PRN (09:56)
--- NOTE | 2020-08-29 11:14 | IPNPDOC ---
Subjective Date Seen The patient was seen on 08/29/20. Subjective Chief Complaint/HPI Remains confused and crying. Says she wants to go home. No fever or chills. No chest pain or SOB. SHe keeps on ripping out her IVs. Objective Physical Examination General Exam: Positive: Alert, Cooperative, No Acute Distress, Other (confused ) Eye Exam: Positive: PERRLA, Conjunctiva & lids normal, EOMI; Negative: Sclera icteric ENT Exam: Positive: Pharynx Normal, Tongue Midline, Other ENT (dry mucous membranes. 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 For EMS she was awake and alert to only name. As per sister in law she has been having hallucinations auditory and visual for about 1 to 2 weeks. She could not tell me what had happened at home. She thinks she is living with her and asked about her mother in law and her mother. She was following simple commands and answering simple questions but her answers were unreliable. As per daughter she spoke to patient on Wednesday night. Yesterday night she could not get hold of her so she called this morning and there was still no answer so patient's sister in law went to check on her. As per daughter due to her hallucinations over the last 1 to 2 weeks she was checked found to have an UTI and treated with Cefdinir from 08/20/20. She was admitted for Acute metabolic encephalopathy. Acute Metabolic encephalopathy with probable underlying Dementia. Acute metabolic encephalopathy probably due to dehydration, recent UTI and antibiotics and recent BRIAN. I feel she has underlying dementia also. No stroke No signs of infection noted though her WBC is high and she was hypothermic her cxr is clear her UA is clear and she does not have any abdominal complaints. I think the elevated WBC and the hypothermia is reactive to laying on the floor 24 hours or more. WBC has improved without antibiotics. Blood cultures negative till date. Discussed with Dr Osborn will get an EEG. Follow up with Neurology in Office Sitter if needed. Ruled out stroke in view of high platelet counts she is at high risk for thrombosis. MRI negative for any acute changes. and MRA shows parietal lobe AVM Continue ASA. Rhabdomyolysis resolved stopped IVF. ? Dementia with possible Parkinson's disease. She does have static tremors, cog wheel rigidity at wrists and elbows as well as perioral tremors. Patient noted to have increasing tremors by family at rest and has stated having hallucinations. could have underlying Parkinson's dementia. Thrombocytosis better today. On hydroxyurea 1000 mg daily with the goal to bring down the count to < 450. Abdominal US negative for hepatomegaly or splenomegaly will continue IVF Vit B12 deficiency Cyanocobalamin 1000 mg im x 3 days then weekly. CKD stage 3 baseline creatinine around 1.5 creatinine at baseline will monitor. Macular degeneration/ legally blind fall risk. H/o Hypertension. not on any meds will monitor. Anxiety. will hold home meds. Tremors ? Parkinson's with possible dementia. Plan/VTE VTE Prophylaxis Ordered?: Yes VS, I&O, 24H, Fishbone Vital Signs/I&O Vital Signs Date Time Temp Pulse Resp B/P (MAP) Pulse Ox O2 Delivery O2 Flow Rate FiO2 08/29/20 06:00 98.9 75 17 145/62 (89) 95 Room Air I&O- Last 24 Hours up to 6 AM 08/29/20 06:00 Intake Total 3045 ml Output Total 950 ml Balance 2095 ml Laboratory Data 24H LABS Laboratory Tests 2 08/29/20 06:15: Immature Granulocyte % (Auto) 0.4, Neutrophils (%) (Auto) 68.4H, Lymphocytes (%) (Auto) 18.0L, Monocytes (%) (Auto) 8.7H, Eosinophils (%) (Auto) 4.0H, Basophils (%) (Auto) 0.5, Neutrophils # (Auto) 7.6, Lymphocytes # (Auto) 2.0, Monocytes # (Auto) 1.0H, Eosinophils # (Auto) 0.5, Basophils # (Auto) 0.1, Nucleated Red Blood Cells % (auto) 0.0, Anion Gap 4L, Glomerular Filtration Rate 44.5, Calcium Level 8.2L, Iron Level 44L, Total Iron Binding Capacity 260, Transferrin % Saturation 16.9, Ferritin 110, Total Creatine Kinase 272H CBC/BMP Laboratory Tests 08/29/20 06:15 Microbiology Microbiology 08/27/20 Blood Culture - Preliminary, Resulted No growth after 24 hours . All specim... 08/27/20 Blood Culture - Preliminary, Resulted No growth after 24 hours . All specim... ALIA BROCK MD Aug 29, 2020 11:14
[2020-08-29 13:55] VITALS: BP 130/59
[2020-08-29 14:19] VITALS: BP 195/97
--- NOTE | 2020-08-29 15:05 | IPNPDOC ---
Date Seen The patient was seen on 08/29/20. Progress Note SUBJECTIVE: Patient is a80 year old lady admitted with confusion and high platelet count. platelet droppijg quickly. OBJECTIVE PHYSICAL EXAMINATION: VITAL SIGNS: Please see below. GENERAL: seen on stretcher oriented to person HEENT: skin graft fore head CARDIOVASCULAR: .regular rhythm RESPIRATORY: .no wheezing no rales ABDOMINAL: EXTREMITIES: NEUROLOGICAL: PSYCHOLOGICAL: LABORATORY DATA, IMAGING STUDIES, MICROBIOLOGY: Please see below. Echocardiogram: . DVT prophylaxis ordered?: ASSESSMENT AND PLAN: This is a 80 year old lady with thrombocytopenia platelet dropping quickly . platelets less than 600,000. suggest : Stop Hydrea continue serial CBC continue Aspirin after discharge follow in office for bone marrow biopsy. DISPOSITION: . VS, I&O, 24H, Fishbone Vital Signs/I&O Vital Signs Date Time Temp Pulse Resp B/P (MAP) Pulse Ox O2 Delivery O2 Flow Rate FiO2 08/29/20 14:19 98.1 93 26 195/97 (129) 96 Room Air I&O- Last 24 Hours up to 6 AM 08/29/20 06:00 Intake Total 3045 ml Output Total 950 ml Balance 2095 ml Laboratory Data 24H LABS Laboratory Tests 2 08/29/20 06:15: Immature Granulocyte % (Auto) 0.4, Neutrophils (%) (Auto) 68.4H, Lymphocytes (%) (Auto) 18.0L, Monocytes (%) (Auto) 8.7H, Eosinophils (%) (Auto) 4.0H, Basophils (%) (Auto) 0.5, Neutrophils # (Auto) 7.6, Lymphocytes # (Auto) 2.0, Monocytes # (Auto) 1.0H, Eosinophils # (Auto) 0.5, Basophils # (Auto) 0.1, Nucleated Red Blood Cells % (auto) 0.0, Anion Gap 4L, Glomerular Filtration Rate 44.5, Calcium Level 8.2L, Iron Level 44L, Total Iron Binding Capacity 260, Transferrin % Saturation 16.9, Ferritin 110, Total Creatine Kinase 272H CBC/BMP Laboratory Tests 08/29/20 06:15 Microbiology Microbiology 08/27/20 Blood Culture - Preliminary, Resulted No Growth after 48 hours. All Specime... 08/27/20 Blood Culture - Preliminary, Resulted No Growth after 48 hours. All Specime... ИРИНА SOLORIO MD Aug 29, 2020 15:05
--- NOTE | 2020-08-29 15:36 | REP ---
INDICATION: Fall COMPARISON: 08/27/2020 TECHNIQUE: Axial noncontrast images from the skull base to the thoracic inlet with coronal reformations. This CT examination was performed using the following dose reduction techniques: Automated exposure control, adjustment of mA and/or kv according to the patient's size, and use of iterative reconstruction technique. FINDINGS: Age-related atrophy and microvascular ischemic changes are appreciated. The ventricles and sulci are symmetric. Lara-white differentiation is maintained. There is no evidence for acute intracranial hemorrhage, mass/mass effect, pathology or infarction. No extra-axial fluid collection. Calvarium is intact. Paranasal sinuses and mastoid air cells are clear. IMPRESSION: Age related atrophy and microvascular ischemic changes. No acute intracranial hemorrhage, infarction, or mass/mass effect. <Electronically signed by Dawit Shepherd > 08/29/20 1848
[2020-08-29] MEDS ORDERED: ACETAMINOPHEN 500 MG TAB PO PRN (18:15)
[2020-08-29 19:40] VITALS: BP 142/72
[2020-08-29] MEDS: QUEtiapine FUMARATE 25 MG TAB PO SCH (19:54)
[2020-08-29] MEDS ORDERED: HYDROXYUREA 500 MG CAP PO SCH (21:00)
[2020-08-29 22:00] VITALS: BP 140/61
[2020-08-30 06:00] VITALS: BP 169/77
[2020-08-30 07:36] LABS: BASO # 0.1 10^3/uL (0.0-0.2); BASO % 0.7 % (0.0-1.0); EOS # 0.5 10^3/uL (0.0-0.5); EOS % 4.5 % (0.0-3.0); HEMATOCRIT 35.1 % (36.0-47.0); HEMOGLOBIN 10.8 g/dl (12.0-15.5); LYMPH # 1.4 10^3/uL (1.5-5.0); LYMPH % 12.3 % (24.0-44.0); MEAN CORPUSCULAR HEMOGLOBIN 29.1 pg (27.0-33.0); MEAN CORPUSCULAR HGB CONC 30.8 g/dl (32.0-36.5); MEAN CORPUSCULAR VOLUME 94.6 fl (80.0-96.0); MONO % 9.1 % (0.0-5.0); NEUTROPHILS % 72.9 % (36.0-66.0); PLATELET COUNT, AUTOMATED 644 10^3/uL (150-450); RED BLOOD COUNT 3.71 10^6/uL (4.00-5.40)
[2020-08-30 08:09] LABS: CALCIUM LEVEL 8.5 MG/DL (8.8-10.2); CREATININE FOR GFR 1.15 MG/DL (0.55-1.30); GLOMERULAR FILTRATION RATE 48.6 (>39); POTASSIUM SERUM 4.3 MEQ/L (3.5-5.1)
--- NOTE | 2020-08-30 10:32 | IPNPDOC ---
Subjective Date Seen The patient was seen on 08/30/20. Subjective Chief Complaint/HPI Patient had a fall yesterday when she got out of chair by herself and started to stumbling around. the staff rushed tot he room when her alrm was triggered but she ran into the nurse could not control her self and fell against her then on to the floor hitting her fore head on the walker. CT head was negative. Objective Physical Examination General Exam: Positive: Alert, Cooperative, No Acute Distress, Other (confused ) Eye Exam: Positive: PERRLA, Conjunctiva & lids normal, EOMI; Negative: Sclera icteric ENT Exam: Positive: Pharynx Normal, Tongue Midline, Other ENT (dry mucous membranes. 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 For EMS she was awake and alert to only name. As per sister in law she has been having hallucinations auditory and visual for about 1 to 2 weeks. She could not tell me what had happened at home. She thinks she is living with her and asked about her mother in law and her mother. She was following simple commands and answering simple questions but her answers were unreliable. As per daughter she spoke to patient on Wednesday night. Yesterday night she could not get hold of her so she called this morning and there was still no answer so patient's sister in law went to check on her. As per daughter due to her hallucinations over the last 1 to 2 weeks she was checked found to have an UTI and treated with Cefdinir from 08/20/20. She was admitted for Acute metabolic encephalopathy. Acute Metabolic encephalopathy with probable underlying Dementia. Acute metabolic encephalopathy probably due to dehydration, recent UTI and antibiotics and recent BRIAN. I feel she has underlying dementia also. No signs of infection noted though her WBC is high and she was hypothermic her cxr is clear her UA is clear and she does not have any abdominal complaints. I think the elevated WBC and the hypothermia is reactive to laying on the floor 24 hours or more. WBC has improved without antibiotics. Blood cultures negative till date. EEG done. Discussed with Dr Osborn. Follow up with Neurology in Office Sitter if needed. Ruled out stroke in view of high platelet counts she is at high risk for thrombosis. MRI negative for any acute changes. and MRA shows parietal lobe AVM Continue ASA. Rhabdomyolysis resolved ? Dementia with possible Parkinson's disease. She does have static tremors, cog wheel rigidity at wrists and elbows as well as perioral tremors. Patient noted to have increasing tremors by family at rest and has stated having hallucinations. could have underlying Parkinson's dementia. Thrombocytosis better today. Was On hydroxyurea 1000 mg daily with the goal to bring down the count to < 450. Dr Mirza stopped it as the platelet was coming down very first will continue to monitor. Abdominal US negative for hepatomegaly or splenomegaly Vit B12 deficiency Cyanocobalamin 1000 mg im x 3 days then weekly. CKD stage 3 baseline creatinine around 1.5 creatinine at baseline will monitor. Macular degeneration/ legally blind fall risk. H/o Hypertension. not on any meds will monitor. Anxiety. will hold home meds. Tremors ? Parkinson's with possible dementia. Plan/VTE VTE Prophylaxis Ordered?: Yes VS, I&O, 24H, Jason Vital Signs/I&O Vital Signs Date Time Temp Pulse Resp B/P (MAP) Pulse Ox O2 Delivery O2 Flow Rate FiO2 08/30/20 06:00 98.2 77 18 169/77 (107) 97 Room Air I&O- Last 24 Hours up to 6 AM 08/30/20 06:00 Intake Total 330 ml Output Total 525 ml Balance -195 ml Laboratory Data 24H LABS Laboratory Tests 2 08/30/20 06:53: Immature Granulocyte % (Auto) 0.5, Neutrophils (%) (Auto) 72.9H, Lymphocytes (%) (Auto) 12.3L, Monocytes (%) (Auto) 9.1H, Eosinophils (%) (Auto) 4.5H, Basophils (%) (Auto) 0.7, Neutrophils # (Auto) 8.0, Lymphocytes # (Auto) 1.4L, Monocytes # (Auto) 1.0H, Eosinophils # (Auto) 0.5, Basophils # (Auto) 0.1, Nucleated Red Blood Cells % (auto) 0.0, Anion Gap 5L, Glomerular Filtration Rate 48.6, Calcium Level 8.5L CBC/BMP Laboratory Tests 08/30/20 06:53 Microbiology Microbiology 08/27/20 Blood Culture - Preliminary, Resulted No Growth after 48 hours. All Specime... 08/27/20 Blood Culture - Preliminary, Resulted No Growth after 48 hours. All Specime... ALIA BROCK MD Aug 30, 2020 10:32
--- NOTE | 2020-08-30 11:07 | EEG ---
ELECTROENCEPHALOGRAM DATE: 08/29/2020 DIAGNOSIS: Altered mental status, evaluate for encephalopathy. EEG# [id number]. REFERRING PHYSICIAN: Génesis Delacruz MD HISTORY: Patient is a 80-year-old woman with legal blindness, macular degeneration, AVM in the head, who has been having auditory and visual hallucinations for one to two weeks. She was treated for a UTI. This EEG was done to rule out epileptic potential and assess encephalopathy. She is currently taking aspirin, hydroxyurea, quetiapine, vitamin B12. TECHNICAL DESCRIPTION: This digital EEG was recorded by 21-scalp, ear, and two EKG electrodes and was reviewed in bipolar and referential montages following reformatting in 10-20 international electrode placement system. INTERPRETATION: Patient was noted to be in awake and drowsy states during this EEG. Resting and awake background rhythm consisted of well-formed posterior dominant rhythm with anterior-posterior gradient comprising of 6-7 Hz theta activity measuring 15-40 microvolts in amplitude, which was symmetric bilaterally. Excessive muscle and motion artifact were noted. No sleep was achieved. Hyperventilation could not be performed. Photic stimulation remained unremarkable. EKG revealed normal sinus rhythm. No focal, lateralizing, or epileptiform abnormalities were seen. No relevant clinical activity was noted. CONCLUSION: This EEG in mostly awake stage is abnormal due to presence of generalized slowing and disorganization of background consistent with nonspecific diffuse cerebral dysfunction, suggesting an encephalopathy due to multiple potential causes including toxic, metabolic, infectious, and multifocal structure brain abnormalities. No epileptiform abnormalities were seen. Clinical correlation is recommended.
[2020-08-30] MEDS: ENOXAPARIN 40MG/0.4ML SYRINGE (J1650 PER 10MG) SC SCH (11:09)
[2020-08-30] MEDS: CYANOCOBALAMIN 1,000MCG/ML VIAL (J3420) IM SCH (11:09)
[2020-08-30] MEDS: ASPIRIN 81 MG ENTERIC TAB PO SCH (11:10)
[2020-08-30] MEDS: NYSTATIN 100,000 UNITS/GM TOPICAL PWD 15 GM TOP PRN (11:24)
[2020-08-30 14:00] VITALS: BP 125/73
--- NOTE | 2020-08-30 14:24 | IPNPDOC ---
Date Seen The patient was seen on 08/30/20. Progress Note SUBJECTIVE: Patient is a 80 year old lady fall yesterday CT head no new lesion OBJECTIVE PHYSICAL EXAMINATION: VITAL SIGNS: Please see below. GENERAL: [confused HEENT: old skin graft CARDIOVASCULAR: . RESPIRATORY: . ABDOMINAL: EXTREMITIES: [bruisng on her right arm NEUROLOGICAL: PSYCHOLOGICAL: [confused LABORATORY DATA, IMAGING STUDIES, MICROBIOLOGY: Please see below. Echocardiogram: . DVT prophylaxis ordered?: ASSESSMENT AND PLAN: This is a -year-old [RACE] [GENDER] with . PROBLEMS: 1. Platelet elevation chronic problem she will eventually need a bone marrow biopsy as serum testing was negative Plan: Continue Aspirin do not give Hydrea When stable follow up in the office Give B12 and Iron replacement DISPOSITION: . VS, I&O, 24H, Fishbone Vital Signs/I&O Vital Signs Date Time Temp Pulse Resp B/P (MAP) Pulse Ox O2 Delivery O2 Flow Rate FiO2 08/30/20 06:00 98.2 77 18 169/77 (107) 97 Room Air I&O- Last 24 Hours up to 6 AM 08/30/20 05:59 Intake Total 755 ml Output Total 525 ml Balance 230 ml Laboratory Data 24H LABS Laboratory Tests 2 08/30/20 06:53: Immature Granulocyte % (Auto) 0.5, Neutrophils (%) (Auto) 72.9H, Lymphocytes (%) (Auto) 12.3L, Monocytes (%) (Auto) 9.1H, Eosinophils (%) (Auto) 4.5H, Basophils (%) (Auto) 0.7, Neutrophils # (Auto) 8.0, Lymphocytes # (Auto) 1.4L, Monocytes # (Auto) 1.0H, Eosinophils # (Auto) 0.5, Basophils # (Auto) 0.1, Nucleated Red Blood Cells % (auto) 0.0, Anion Gap 5L, Glomerular Filtration Rate 48.6, Calcium Level 8.5L CBC/BMP Laboratory Tests 08/30/20 06:53 Microbiology Microbiology 08/27/20 Blood Culture - Preliminary, Resulted No Growth after 72 hours. All specime... 08/27/20 Blood Culture - Preliminary, Resulted No Growth after 72 hours. All specime... ИРИНА SOLORIO MD Aug 30, 2020 14:24
[2020-08-30] MEDS ORDERED: LORazepam 2 MG/ML VIAL IV STA (15:29)
[2020-08-30] MEDS ORDERED: LORazepam 2 MG/ML VIAL As Ordered ONE (15:55)
[2020-08-30] MEDS: FERROUS SULFATE 300MG/5ML UDC LIQUID PO SCH (16:00)
[2020-08-30] MEDS: QUEtiapine FUMARATE 25 MG TAB PO SCH (21:00)
[2020-08-30 22:00] VITALS: BP 124/73
[2020-08-31 06:00] VITALS: BP 129/74
[2020-08-31 07:01] LABS: BASO # 0.1 10^3/uL (0.0-0.2); BASO % 0.6 % (0.0-1.0); EOS # 0.4 10^3/uL (0.0-0.5); EOS % 3.3 % (0.0-3.0); HEMATOCRIT 36.5 % (36.0-47.0); HEMOGLOBIN 11.5 g/dl (12.0-15.5); LYMPH # 1.1 10^3/uL (1.5-5.0); LYMPH % 8.6 % (24.0-44.0); MEAN CORPUSCULAR HEMOGLOBIN 30.2 pg (27.0-33.0); MEAN CORPUSCULAR HGB CONC 31.5 g/dl (32.0-36.5); MEAN CORPUSCULAR VOLUME 95.8 fl (80.0-96.0); MONO # 0.9 10^3/uL (0.0-0.8); MONO % 6.8 % (0.0-5.0); NEUTROPHILS # 10.1 10^3/uL (1.5-8.5); NEUTROPHILS % 80.3 % (36.0-66.0); PLATELET COUNT, AUTOMATED 613 10^3/uL (150-450); RED BLOOD COUNT 3.81 10^6/uL (4.00-5.40); WHITE BLOOD COUNT 12.6 10^3/uL (4.0-10.0)
[2020-08-31 07:29] LABS: CALCIUM LEVEL 8.6 MG/DL (8.8-10.2); CREATININE FOR GFR 1.22 MG/DL (0.55-1.30); GLOMERULAR FILTRATION RATE 45.4 (>39); POTASSIUM SERUM 4.5 MEQ/L (3.5-5.1)
[2020-08-31] MEDS: CYANOCOBALAMIN 1,000MCG/ML VIAL (J3420) IM SCH (08:41)
[2020-08-31] MEDS: ENOXAPARIN 40MG/0.4ML SYRINGE (J1650 PER 10MG) SC SCH (08:41)
[2020-08-31] MEDS: QUEtiapine FUMARATE 12.5 MG HALF-TAB PO SCH (08:42)
[2020-08-31] MEDS: FERROUS SULFATE 300MG/5ML UDC LIQUID PO SCH (08:42)
[2020-08-31] MEDS: ASPIRIN 81 MG ENTERIC TAB PO SCH (08:42)
--- NOTE | 2020-08-31 12:01 | IPNPDOC ---
Subjective Date Seen The patient was seen on 08/31/20. Subjective Chief Complaint/HPI Patient remains pleasantly confused. But is impulsive and will get up quickly and start to walk inspite of staff repeatedly reminding her not to do so. No fever or chills. no chest pain or sob. Objective Physical Examination General Exam: Positive: Alert, Cooperative, No Acute Distress, Other (confused ) Eye Exam: Positive: PERRLA, Conjunctiva & lids normal, EOMI; Negative: Sclera icteric ENT Exam: Positive: Pharynx Normal, Tongue Midline, Other ENT (dry mucous membranes. 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 For EMS she was awake and alert to only name. As per sister in law she has been having hallucinations auditory and visual for about 1 to 2 weeks. She could not tell me what had happened at home. She thinks she is living with her and asked about her mother in law and her mother. She was following simple commands and answering simple questions but her answers were unreliable. As per daughter she spoke to patient on Wednesday night. Yesterday night she could not get hold of her so she called this morning and there was still no answer so patient's sister in law went to check on her. As per daughter due to her hallucinations over the last 1 to 2 weeks she was checked found to have an UTI and treated with Cefdinir from 08/20/20. She was admitted for Acute metabolic encephalopathy. Acute Metabolic encephalopathy with probable underlying Dementia. Acute metabolic encephalopathy probably due to dehydration, recent UTI and antibiotics and recent BRIAN. Now resolved. It seems she is in her baseline mental status at this point. No signs of infection noted though her WBC is high and she was hypothermic her cxr is clear her UA is clear and she does not have any abdominal complaints. I think the elevated WBC and the hypothermia is reactive to laying on the floor 24 hours or more. WBC has improved without antibiotics. Blood cultures negative till date. EEG noted. Discussed with Dr Osborn. Follow up with Neurology in Office Sitter if needed. Ruled out stroke in view of high platelet counts she is at high risk for thrombosis. MRI negative for any acute changes. and MRA shows parietal lobe AVM Continue ASA. Rhabdomyolysis resolved ? Dementia with possible Parkinson's disease. She does have static tremors, cog wheel rigidity at wrists and elbows as well as perioral tremors. Juliana has difficulty stopping when she starts walking and as per nurses seems to stumble about . Her vision is also poor. Patient noted to have increasing tremors by family at rest and has stated having hallucinations. could have underlying Parkinson's dementia. Thrombocytosis in 600k Was On hydroxyurea 1000 mg daily with the goal to bring down the count to < 450. Dr Mirza stopped it as the platelet was coming down very fast will continue to monitor. Abdominal US negative for hepatomegaly or splenomegaly Vit B12 deficiency and iron def Cyanocobalamin 1000 mg im x 3 days then weekly. iron supplements. CKD stage 3 baseline creatinine around 1.5 creatinine at baseline will monitor. Macular degeneration/ legally blind fall risk. H/o Hypertension. not on any meds will monitor. Anxiety. will hold home meds. Tremors ? Parkinson's with possible dementia. Plan/VTE VTE Prophylaxis Ordered?: Yes VS, I&O, 24H, Fishbone Vital Signs/I&O Vital Signs Date Time Temp Pulse Resp B/P (MAP) Pulse Ox O2 Delivery O2 Flow Rate FiO2 08/31/20 06:00 97.8 76 18 129/74 (92) 96 Room Air I&O- Last 24 Hours up to 6 AM 08/31/20 06:00 Intake Total 540 ml Output Total 200 ml Balance 340 ml Laboratory Data 24H LABS Laboratory Tests 2 08/31/20 06:27: Immature Granulocyte % (Auto) 0.4, Neutrophils (%) (Auto) 80.3H, Lymphocytes (%) (Auto) 8.6L, Monocytes (%) (Auto) 6.8H, Eosinophils (%) (Auto) 3.3H, Basophils (%) (Auto) 0.6, Neutrophils # (Auto) 10.1H, Lymphocytes # (Auto) 1.1L, Monocytes # (Auto) 0.9H, Eosinophils # (Auto) 0.4, Basophils # (Auto) 0.1, Nucleated Red Blood Cells % (auto) 0.0, Anion Gap 6L, Glomerular Filtration Rate 45.4, Calcium Level 8.6L CBC/BMP Laboratory Tests 08/31/20 06:27 Microbiology Microbiology 08/27/20 Blood Culture - Preliminary, Resulted No Growth after 72 hours. All specime... 08/27/20 Blood Culture - Preliminary, Resulted No Growth after 72 hours. All specime... ALIA BROCK MD Aug 31, 2020 12:01
[2020-08-31 14:00] VITALS: BP 93/61
[2020-08-31 16:47] VITALS: BP 139/69
[2020-08-31] MEDS: QUEtiapine FUMARATE 25 MG TAB PO SCH (20:41)
[2020-08-31 22:00] VITALS: BP_SYST 134; BP_SYST 150; BP_DIAS 70; BP_DIAS 78
[2020-09-01] MEDS ORDERED: RAMELTEON 8 MG TAB (ROZEREM) PO ONE (02:30)
[2020-09-01 06:00] VITALS: BP 132/81
[2020-09-01 06:13] LABS: BASO # 0.1 10^3/uL (0.0-0.2); BASO % 0.6 % (0.0-1.0); EOS # 0.4 10^3/uL (0.0-0.5); EOS % 2.7 % (0.0-3.0); HEMATOCRIT 38.6 % (36.0-47.0); HEMOGLOBIN 11.6 g/dl (12.0-15.5); LYMPH # 1.6 10^3/uL (1.5-5.0); LYMPH % 11.1 % (24.0-44.0); MEAN CORPUSCULAR HEMOGLOBIN 29.5 pg (27.0-33.0); MEAN CORPUSCULAR HGB CONC 30.1 g/dl (32.0-36.5); MEAN CORPUSCULAR VOLUME 98.2 fl (80.0-96.0); MONO % 7.3 % (0.0-5.0); NEUTROPHILS # 11.1 10^3/uL (1.5-8.5); NEUTROPHILS % 77.7 % (36.0-66.0); PLATELET COUNT, AUTOMATED 569 10^3/uL (150-450); RED BLOOD COUNT 3.93 10^6/uL (4.00-5.40); WHITE BLOOD COUNT 14.2 10^3/uL (4.0-10.0)
[2020-09-01 06:47] LABS: CALCIUM LEVEL 8.3 MG/DL (8.8-10.2); CREATININE FOR GFR 1.66 MG/DL (0.55-1.30); GLOMERULAR FILTRATION RATE 31.8 (>39); POTASSIUM SERUM 4.4 MEQ/L (3.5-5.1)
[2020-09-01] MEDS: ASPIRIN 81 MG ENTERIC TAB PO SCH (08:09)
[2020-09-01] MEDS: ENOXAPARIN 40MG/0.4ML SYRINGE (J1650 PER 10MG) SC SCH (08:09)
[2020-09-01] MEDS: FERROUS SULFATE 300MG/5ML UDC LIQUID PO SCH (08:09)
[2020-09-01] MEDS: QUEtiapine FUMARATE 12.5 MG HALF-TAB PO SCH (08:09)
[2020-09-01] MEDS: QUEtiapine FUMARATE 25 MG TAB PO SCH (20:02)
[2020-09-01 22:00] VITALS: BP 108/55
[2020-09-02 06:00] VITALS: BP 113/55
[2020-09-02 07:28] LABS: BASO # 0.1 10^3/uL (0.0-0.2); BASO % 0.6 % (0.0-1.0); EOS # 0.4 10^3/uL (0.0-0.5); EOS % 2.8 % (0.0-3.0); HEMATOCRIT 34.1 % (36.0-47.0); HEMOGLOBIN 10.6 g/dl (12.0-15.5); LYMPH # 1.4 10^3/uL (1.5-5.0); LYMPH % 10.9 % (24.0-44.0); MEAN CORPUSCULAR HGB CONC 31.1 g/dl (32.0-36.5); MEAN CORPUSCULAR VOLUME 96.6 fl (80.0-96.0); MONO % 7.9 % (0.0-5.0); NEUTROPHILS # 9.7 10^3/uL (1.5-8.5); PLATELET COUNT, AUTOMATED 616 10^3/uL (150-450); RED BLOOD COUNT 3.53 10^6/uL (4.00-5.40); WHITE BLOOD COUNT 12.6 10^3/uL (4.0-10.0)
[2020-09-02 07:51] LABS: CALCIUM LEVEL 8.6 MG/DL (8.8-10.2); CREATININE FOR GFR 1.66 MG/DL (0.55-1.30); GLOMERULAR FILTRATION RATE 31.8 (>39); POTASSIUM SERUM 5.2 MEQ/L (3.5-5.1)
[2020-09-02] MEDS ORDERED: CYANOCOBALAMIN 1,000MCG/ML VIAL (J3420) IM SCH (09:00)
[2020-09-02] MEDS: ASPIRIN 81 MG ENTERIC TAB PO SCH (15:25)
[2020-09-02] MEDS: ENOXAPARIN 40MG/0.4ML SYRINGE (J1650 PER 10MG) SC SCH (15:25)
[2020-09-02] MEDS: FERROUS SULFATE 300MG/5ML UDC LIQUID PO SCH (15:25)
[2020-09-02] MEDS: QUEtiapine FUMARATE 12.5 MG HALF-TAB PO SCH (15:25)
[2020-09-02] MEDS: QUEtiapine FUMARATE 25 MG TAB PO SCH (21:16)
[2020-09-03 06:00] VITALS: BP 156/75
[2020-09-03 07:03] LABS: BASO # 0.1 10^3/uL (0.0-0.2); BASO % 0.6 % (0.0-1.0); EOS # 0.4 10^3/uL (0.0-0.5); EOS % 2.8 % (0.0-3.0); HEMATOCRIT 36.1 % (36.0-47.0); HEMOGLOBIN 11.8 g/dl (12.0-15.5); LYMPH # 1.8 10^3/uL (1.5-5.0); LYMPH % 12.2 % (24.0-44.0); MEAN CORPUSCULAR HEMOGLOBIN 30.6 pg (27.0-33.0); MEAN CORPUSCULAR HGB CONC 32.7 g/dl (32.0-36.5); MEAN CORPUSCULAR VOLUME 93.8 fl (80.0-96.0); MONO # 1.2 10^3/uL (0.0-0.8); NEUTROPHILS # 10.9 10^3/uL (1.5-8.5); NEUTROPHILS % 75.4 % (36.0-66.0); RED BLOOD COUNT 3.85 10^6/uL (4.00-5.40); WHITE BLOOD COUNT 14.5 10^3/uL (4.0-10.0)
[2020-09-03 07:13] LABS: PLATELET COUNT, AUTOMATED 728 10^3/uL (150-450)
[2020-09-03 07:26] LABS: CALCIUM LEVEL 8.9 MG/DL (8.8-10.2); CREATININE FOR GFR 1.34 MG/DL (0.55-1.30); GLOMERULAR FILTRATION RATE 40.7 (>39); POTASSIUM SERUM 4.6 MEQ/L (3.5-5.1)
[2020-09-03] MEDS: ASPIRIN 81 MG ENTERIC TAB PO SCH (08:50)
[2020-09-03] MEDS: FERROUS SULFATE 300MG/5ML UDC LIQUID PO SCH (08:50)
[2020-09-03] MEDS: QUEtiapine FUMARATE 12.5 MG HALF-TAB PO SCH (08:50)
[2020-09-03] MEDS: ENOXAPARIN 40MG/0.4ML SYRINGE (J1650 PER 10MG) SC SCH (08:50)
--- NOTE | 2020-09-03 10:42 | IPN ---
PROGRESS NOTE DATE: 09/03/2020 SUBJECTIVE: Lillian is on the hospital service. I was asked to see her today because her white cell count is high. I have not seen her previously. She has thrombocytopenia and has been seen by Dr. Mirza from [facility], who recommends a bone marrow biopsy as an outpatient. No dysuria, cough, fever, or chills. OBJECTIVE: VITAL SIGNS: Stable, afebrile, blood pressure 156/75. HEENT: Shows scarring from her previous scalp surgery, as well as ecchymosis right side of the scalp. LUNGS: Clear. HEART: Rhythm regular. ABDOMEN: Soft and nontender. EXTREMITIES: No peripheral edema. LABORATORY DATA: White count 14.5, hemoglobin 11.8, platelets 728,000. Sodium 140, potassium 4.6, BUN 13, creatinine 1.4, glucose 90. IMPRESSION: 1. Mild leukocytosis. It looks like her white count has fluctuated around 14 and I do not think it is a sign of active infection and should not delay her being transferred to alternate level of care. 2. Thrombocytosis. Continue aspirin. Outpatient bone marrow being advised. The patient is medically stable for transfer to alternate level of care in my opinion.
--- NOTE | 2020-09-03 17:06 | IPNPDOC ---
Date Seen The patient was seen on 09/03/20. Progress Note SUBJECTIVE: 80 year old lady leukocytosis elevated platelets chronic JAK2 normal spleensize normal OBJECTIVE PHYSICAL EXAMINATION: VITAL SIGNS: Please see below. GENERAL: awkae responsive HEENT: CARDIOVASCULAR: seem regular at the esthela of my exam . RESPIRATORY: .breathing comfortably ABDOMINAL: EXTREMITIES: NEUROLOGICAL: PSYCHOLOGICAL: LABORATORY DATA, IMAGING STUDIES, MICROBIOLOGY: Please see below. Echocardiogram: . DVT prophylaxis ordered?: ASSESSMENT AND PLAN: This is a -year-old [RACE] [GENDER] with . PROBLEMS: 1. leukocytosis 2. : .Thrombocytosis follow up in the office bone marrow biopsy as out patient , DISPOSITION: . VS, I&O, 24H, Fishbone Vital Signs/I&O Vital Signs Date Time Temp Pulse Resp B/P (MAP) Pulse Ox O2 Delivery O2 Flow Rate FiO2 09/03/20 06:00 97.8 85 19 156/75 (102) 97 Room Air I&O- Last 24 Hours up to 6 AM 09/03/20 06:00 Intake Total 600 ml Output Total 225 ml Balance 375 ml Laboratory Data 24H LABS Laboratory Tests 2 09/03/20 06:38: Immature Granulocyte % (Auto) 1.0, Neutrophils (%) (Auto) 75.4H, Lymphocytes (%) (Auto) 12.2L, Monocytes (%) (Auto) 8.0H, Eosinophils (%) (Auto) 2.8, Basophils (%) (Auto) 0.6, Neutrophils # (Auto) 10.9H, Lymphocytes # (Auto) 1.8, Monocytes # (Auto) 1.2H, Eosinophils # (Auto) 0.4, Basophils # (Auto) 0.1, Nucleated Red Blood Cells % (auto) 0.0, Anion Gap 4L, Glomerular Filtration Rate 40.7, Calcium Level 8.9 CBC/BMP Laboratory Tests 09/03/20 06:38 Microbiology Microbiology 08/27/20 Blood Culture - Final, Complete NO GROWTH AFTER 5 DAYS 08/27/20 Blood Culture - Final, Complete NO GROWTH AFTER 5 DAYS ИРИНА SOLORIO MD Sep 03, 2020 17:06
[2020-09-03] MEDS: QUEtiapine FUMARATE 25 MG TAB PO SCH (21:10)
[2020-09-04 06:00] VITALS: BP 157/76
[2020-09-04 06:10] LABS: VITAMIN B1 LEVEL WHOLE BLOOD 122.3 nmol/L (66.5-200.0)
[2020-09-04] MEDS: ASPIRIN 81 MG ENTERIC TAB PO SCH (09:30)
[2020-09-04] MEDS: QUEtiapine FUMARATE 12.5 MG HALF-TAB PO SCH (09:30)
[2020-09-04] MEDS: FERROUS SULFATE 300MG/5ML UDC LIQUID PO SCH (09:30)
[2020-09-04] MEDS: ENOXAPARIN 40MG/0.4ML SYRINGE (J1650 PER 10MG) SC SCH (09:31)
[2020-09-04] MEDS: QUEtiapine FUMARATE 25 MG TAB PO SCH (20:48)
[2020-09-05 06:00] VITALS: BP 150/76
[2020-09-05] MEDS: ENOXAPARIN 40MG/0.4ML SYRINGE (J1650 PER 10MG) SC SCH (10:57)
[2020-09-05] MEDS: FERROUS SULFATE 300MG/5ML UDC LIQUID PO SCH (10:57)
[2020-09-05] MEDS: QUEtiapine FUMARATE 12.5 MG HALF-TAB PO SCH (10:57)
[2020-09-05] MEDS: ASPIRIN 81 MG ENTERIC TAB PO SCH (10:57)
--- NOTE | 2020-09-05 14:50 | REP ---
INDICATION: Right leg weakness. Has Hx of left parietal AV malformation COMPARISON: 08/29/2020 TECHNIQUE: Axial noncontrast images from the skull base to the thoracic inlet with coronal reformations. This CT examination was performed using the following dose reduction techniques: Automated exposure control, adjustment of mA and/or kv according to the patient's size, and use of iterative reconstruction technique. FINDINGS: Age-related atrophy and microvascular ischemic changes are appreciated. The ventricles and sulci are symmetric. Lara-white differentiation is maintained. There is no evidence for acute intracranial hemorrhage, mass/mass effect, pathology or infarction. No extra-axial fluid collection. Calvarium is intact. Paranasal sinuses and mastoid air cells are clear. IMPRESSION: Age related atrophy and microvascular ischemic changes. No acute intracranial hemorrhage, infarction, or mass/mass effect. <Electronically signed by Dawit Shepherd > 09/05/20 [id number]
[2020-09-05] MEDS: QUEtiapine FUMARATE 25 MG TAB PO SCH (20:02)
--- NOTE | 2020-09-05 22:48 | REPVR ---
PROCEDURE INFORMATION: Exam: MR Head Without Contrast Exam date and time: 09/05/2020 10:35 PM Age: 80 years old Clinical indication: Weakness, extremity and other: Right leg weakness; Left TECHNIQUE: Imaging protocol: MR of the head without contrast. COMPARISON: MRI-Brain without Contrast 08/28/2020 10:11 AM FINDINGS: On diffusion weighted sequences, there is no evidence of true restricted diffusion. No evidence of acute infarction. Redemonstrated is a small cortical based area of encephalomalacia with mildly prominent, asymmetric vasculature. Findings are suspicious for a small vascular malformation in the posteromedial left temporal lobe. Appearance is similar to previous examination. There is no definite intracranial hemorrhage. There is no mass effect or midline shift. Ventricles are symmetrical and mildly dilated with associated cortical volume loss commensurate with patient's stated age. On FLAIR sequences, mild chronic ischemic changes in the periventricular and deep white matter. Midline craniocervical structures are grossly normal. Normal flow voids in the major intracranial arteries. Paranasal sinuses and mastoid air cells are clear. IMPRESSION: No evidence of true restricted diffusion. No acute infarction. 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 No definite acute intracranial process or intracranial hemorrhage. Generalized atrophy and chronic ischemic changes, similar to previous examination. Electronically signed by: Corey Bruce On 09/05/2020 22:48:53 PM
--- NOTE | 2020-09-06 02:07 | DS.PDOC ---
Discharge Summary General Date of Admission Aug 27, 2020 at 16:43 Discharge Summary This is not the official discharge summary. This is an interm discharge summary for the next attending to complete and finish. This discharge summary will be canceled in the next few days PROCEDURES PERFORMED DURING STAY: EEG ADMITTING DIAGNOSES: 1. Acute metabolic encephalopathy 2. Dehydration 3. Rhabdomyolysis 4. Thrombocytosis 5. Leukocytosis 6. Macular degeneration/Legally blind 7. Hypertension 8. Anxiety 9. CKD DISCHARGE DIAGNOSES: 1. Acute metabolic encephalopathy 2. Dehydration 3. Rhabdomyolysis 4. Thrombocytosis 5. Leukocytosis 6. Macular degeneration/Legally blind 7. Hypertension 8. Anxiety 9. CKD 10. Dementia COMPLICATIONS/CHIEF COMPLAINT: Acute Metabolic Encephalopathy, Thrombocythemia. HISTORY OF PRESENT ILLNESS: Mrs. 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 Sister in law found the patient on the floor and called EMS. When EMS arrived, she was awake and orientated only to name. Per the niece, she has been having auditory and visual hallucinations for 1 week. While in the ED, she was hypothermic on arrival and confused. She did not know her home address or what happened at home. She thought her mother and mother in law had been in an accident and something had happened to them. Patient was admitted for acute metabolic encephalopathy. HOSPITAL COURSE: During her hospitalization, infectious causes were investigated. She does have leukocytosis, but it seems to be persistent. UA and blood cultures were negative. Heme/onc was consulted for both leukocytosis and thrombocytosis. Recommended outpatient bone marrow biopsy. During her hospitalization, an EEG was obtained. Demonstrated diffuse cerebral dysfunction. The attending at that time had a discussion with neurology. Recommending outpatient neurology follow up. Otherwise, it was felt that her acute metabolic encephalopathy was secondary to dehydration, recent UTI (with antibiotics), and recent BRAIN. Patient needed rehab, and PFS looked for placement. She will be going to [facility] in [place], [place]. DISCHARGE MEDICATIONS: Please see below. ALLERGIES: Please see below. PHYSICAL EXAMINATION ON DISCHARGE: VITAL SIGNS: Please see below. GENERAL: HEENT: NECK: CARDIOVASCULAR EXAMINATION: RESPIRATORY EXAMINATION: ABDOMINAL EXAMINATION: EXTREMITIES: SKIN: NEUROLOGICAL EXAMINATION: PSYCHIATRIC EXAMINATION: LABORATORY DATA: Please see below. IMAGING: (Radiology impressions) CT Head 08/27/2020 Age related atrophy and microvascular ischemic changes. No acute intracranial hemorrhage, infarction, or mass/mass effect. CT cervical spine without contrast 08/27/2020 No traumatic abnormality noted. Fairly advanced degenerative spondylosis changes stable from April 02, 2019.. CXR 08/27/2020 No active disease. Pelvis Xray 08/27/2020 No traumatic abnormality noted. MRA head 08/28/2020 Left parietal arteriovenous malformation. MRI Brain 08/28/2020 1. Left parietal arteriovenous malformation. No associated hemorrhage. 2. Chronic changes. PROGNOSIS: Good ACTIVITY: As tolerated. DIET: Mechanical soft diet, 2gm potassium DISCHARGE PLAN: Rehab at [facility] [place] in [place], [place] DISPOSITION: . DISCHARGE INSTRUCTIONS: 1. Follow up with PCP in 1 week 2. If agreeable, follow up with Heme/Onc for thrombocytosis/leukocytosis and possible bone marrow biopsy 3. If agreeable, follow up with neurology ITEMS TO FOLLOWUP ON ON OUTPATIENT: 1. None DISCHARGE CONDITION: Stable TIME SPENT ON DISCHARGE: Greater than minutes. Vital Signs/I&Os Vital Signs Date Time Temp Pulse Resp B/P (MAP) Pulse Ox O2 Delivery O2 Flow Rate FiO2 09/05/20 06:00 98.0 88 18 150/76 (100) 97 Room Air I&O- Last 24 Hours up to 6 AM 09/06/20 06:00 Intake Total 1740 ml Balance 1740 ml Microbiology Microbiology 09/05/20 Respiratory Virus Panel (PCR) ([facility]OF[facility]) - Final, Complete 08/27/20 Blood Culture - Final, Complete NO GROWTH AFTER 5 DAYS 08/27/20 Blood Culture - Final, Complete NO GROWTH AFTER 5 DAYS Discharge Medications Scheduled Aspirin (Aspirin EC) 81 Mg Tablet.dr, 81 MG PO DAILY, (Reported) Cefdinir (Cefdinir) 300 Mg Capsule, 300 MG PO DAILY, (Reported) FOR 10 DAYS, FILLED 08/20 Cholecalciferol (Vitamin D3) (Vitamin D3) 10 Mcg Capsule, 800 UNITS PO DAILY, (Reported) Clonazepam (Clonazepam) 0.5 Mg Tablet, 0.5 MG PO DAILY, (Reported) Cranberry Fruit Extract (Cranberry) 500 Mg Capsule, 500 MG PO DAILY, (Reported) Fluoxetine Hcl (Fluoxetine HCl) 20 Mg Capsule, 20 MG PO DAILY, (Reported) Allergies Coded Allergies: Tetanus Vaccines and Toxoid (Verified Allergy, Mild, entire arms swells, 02/23/19) Penicillins (Verified Adverse Reaction, Mild, vomiting, 02/23/19) SAÚL DALTON DO Sep 06, 2020 02:07
[2020-09-06] MEDS ORDERED: QUET1TAB7 PO ×2 (02:11)
[2020-09-06] MEDS ORDERED: FERR5MLUD PO (02:11)
[2020-09-06] MEDS ORDERED: CYAN1000VL IM (02:11)
[2020-09-06 06:00] VITALS: BP 130/52
[2020-09-06] MEDS ORDERED: FLEET ENEMA PR STA (08:38)
[2020-09-06] MEDS: ENOXAPARIN 40MG/0.4ML SYRINGE (J1650 PER 10MG) SC SCH (09:01)
[2020-09-06] MEDS: FERROUS SULFATE 300MG/5ML UDC LIQUID PO SCH (09:01)
[2020-09-06] MEDS: ASPIRIN 81 MG ENTERIC TAB PO SCH (09:01)
[2020-09-06] MEDS: QUEtiapine FUMARATE 12.5 MG HALF-TAB PO SCH (09:01)
--- NOTE | 2020-09-06 12:26 | IPNPDOC ---
Date Seen The patient was seen on 09/06/20. Progress Note - patient seen, comfortable in chair, without complaints, ready for discharge. Exam: General: No distress Oral: Moist mucus membranes neck: Supple Lungs: Clear Cardiac: regular Abdomen: Soft Extremities: Trace edema Plan: Stable for discharge today, refer to discharge summary for full details. VS, I&O, 24H, Fishbone Vital Signs/I&O Vital Signs Date Time Temp Pulse Resp B/P (MAP) Pulse Ox O2 Delivery O2 Flow Rate FiO2 09/06/20 06:00 98.7 77 18 130/52 (78) 96 Room Air I&O- Last 24 Hours up to 6 AM 09/06/20 06:00 Intake Total 1770 ml Balance 1770 ml Laboratory Data Microbiology Microbiology 09/05/20 Respiratory Virus Panel (PCR) (ZOFIA) - Final, Complete 08/27/20 Blood Culture - Final, Complete NO GROWTH AFTER 5 DAYS 08/27/20 Blood Culture - Final, Complete NO GROWTH AFTER 5 DAYS LATOYA RIDDLE MD Sep 06, 2020 12:25
== END 2020-09-06 13:10 | DRG 71 ==
LOC: M ED 12:52 → M ED INP 16:43 → M MSPAV 22:04
PROVIDERS: ADMIT Internal Medicine Nephrology; ATTEND Internal Medicine
DX: G93.41 Metabolic encephalopathy (principal); M62.82 Rhabdomyolysis; G20 Parkinson's disease; D47.3 Essential (hemorrhagic) thrombocythemia; N18.30 Chronic kidney disease, stage 3 unspecified; I12.9 Hypertensive chronic kidney disease with stage 1 through stage 4 chronic kidney disease, or unspecified chronic kidney disease; E86.0 Dehydration; D72.829 Elevated white blood cell count, unspecified; F03.90 Unspecified dementia, unspecified severity, without behavioral disturbance, psychotic disturbance, mood disturbance, and anxiety; H35.30 Unspecified macular degeneration; H54.8 Legal blindness, as defined in USA; F41.9 Anxiety disorder, unspecified; D69.6 Thrombocytopenia, unspecified; Z79.82 Long term (current) use of aspirin; Z79.899 Other long term (current) drug therapy

== ENCOUNTER 2022-09-25 12:11 | Inpatient (IN) | payer MEDICARE ==
[~2022-09-25] VITALS: Ht 157.5 cm; Wt 85.3 kg
[~2022-09-25 12:11] MED LIST changes: +ASCO500T PO; +ASPI81TA26 PO; +BETA0.0543; +CEFD300C41 PO; +CLON0.5T2 PO; +CYAN1000VL IM; +FERR5MLUD PO; +FLUO20CA22 PO; +FURO20TA2 PO; +HYDR-3490 PO; -HYDR25TAB PO; +KETO2CR TOP; +QUET1TAB17 PO; +SILVER
[2022-09-25 13:49] LABS: BASO # 0.1 10^3/uL (0.0-0.2); BASO % 0.5 % (0.0-1.0); EOS # 0.5 10^3/uL (0.0-0.5); EOS % 3.4 % (0.0-3.0); HEMATOCRIT 35.5 % (36.0-47.0); HEMOGLOBIN 10.8 g/dl (12.0-15.5); LYMPH # 1.5 10^3/uL (1.5-5.0); LYMPH % 9.9 % (24.0-44.0); MEAN CORPUSCULAR HEMOGLOBIN 28.3 pg (27.0-33.0); MEAN CORPUSCULAR HGB CONC 30.4 g/dl (32.0-36.5); MEAN CORPUSCULAR VOLUME 92.9 fl (80.0-96.0); MONO # 0.9 10^3/uL (0.0-0.8); MONO % 5.7 % (2.0-8.0); NEUTROPHILS # 11.8 10^3/uL (1.5-8.5); NEUTROPHILS % 80.1 % (36.0-66.0); PLATELET COUNT, AUTOMATED 598 10^3/uL (150-450); RED BLOOD COUNT 3.82 10^6/uL (4.00-5.40); WHITE BLOOD COUNT 14.8 10^3/uL (4.0-10.0)
[2022-09-25 14:19] LABS: CALCIUM LEVEL 8.4 MG/DL (8.3-10.6); CREATININE FOR GFR 2.53 MG/DL (0.55-1.30); GLOMERULAR FILTRATION RATE 19.5 (>32)
[2022-09-25] MEDS ORDERED: HumuLIN R (REGULAR) INSULIN (NovoLIN R) **100U/ML** PER UNIT IV ONE (15:05)
[2022-09-25] MEDS ORDERED: NS 1,000 ML IV SCH (15:05)
[2022-09-25] MEDS ORDERED: SOD POLYSTYRENE SULFONATE SUSP 15GM 60ML UD PO ONE (15:05)
[2022-09-25] MEDS ORDERED: DEXTROSE 50% 50ML SYRINGE IV STA (15:05)
[2022-09-25] MEDS ORDERED: CALCIUM GLUCONATE 1,000 MG in D5W MINI-BAG PLUS 100 ML IV ONE (15:05)
[2022-09-25] MEDS ORDERED: CELE1CAP7 PO (16:27)
[2022-09-25] MEDS ORDERED: BACI500O60 TOP (16:27)
[2022-09-25] MEDS ORDERED: GABA-282 PO (16:27)
[2022-09-25] MEDS ORDERED: CLIN-250 PO (16:27)
[2022-09-25] MEDS ORDERED: DOCU100C16 PO (16:27)
[2022-09-25] MEDS ORDERED: PARO5TAB PO (16:29)
[2022-09-25] MEDS ORDERED: CYAN100050 PO (16:37)
[2022-09-25] MEDS ORDERED: LUBROIN4 OP (16:37)
[2022-09-25] MEDS ORDERED: PEPE50CA PO (16:37)
[2022-09-25] MEDS ORDERED: QUET1TAB17 PO (16:37)
[2022-09-25] MEDS ORDERED: PANT-23 PO (16:37)
[2022-09-25] MEDS ORDERED: [UNRECOGNIZED DRUG - CODE] TOP (16:37)
[2022-09-25] MEDS ORDERED: FEOS200T2 PO (16:39)
[2022-09-25] MEDS ORDERED: ONDA4TAB6 PO (16:39)
[2022-09-25] MEDS ORDERED: HOME MED LIST COMPLETE! XX SCH (16:40)
[2022-09-25 17:25] LABS: RSV AMPLIFICATION NEGATIVE (NEGATIVE)
[2022-09-25] MEDS ORDERED: ULTRACET TAB PO PRN (17:30)
[2022-09-25] MEDS ORDERED: amLODIPine 5 MG TAB PO ONE (17:45)
[2022-09-25] MEDS ORDERED: NS 0.45% 1,000 ML IV SCH (18:00)
[2022-09-25 18:12] LABS: CREATININE FOR GFR 2.45 MG/DL (0.55-1.30); GLOMERULAR FILTRATION RATE 20.2 (>32); POTASSIUM SERUM 4.4 MMOL/L (3.5-5.1)
[2022-09-25] MEDS ORDERED: GLUCOSE 4GM CHEW TABLET PO PRN (18:20)
[2022-09-25] MEDS ORDERED: GLUCAGON INJ 1MG VIAL SC PRN (18:20)
[2022-09-25] MEDS ORDERED: DEXTROSE 50% 50ML SYRINGE IV PRN (18:20)
[2022-09-25 20:06] VITALS: BP 140/63
[2022-09-25] MEDS ORDERED: QUEtiapine FUMARATE 12.5 MG HALF-TAB PO SCH (21:00)
[2022-09-25] MEDS: MUPIROCIN 2% OINT 22 GM TUBE TOP SCH (22:54)
[2022-09-25] MEDS: CLINDAMYCIN 150MG CAPSULE PO SCH (22:54)
[2022-09-25] MEDS: HEPARIN SOD (PORCINE) 5000UNITS/ML 1ML VIAL/SYRINGE SC SCH (22:54)
[2022-09-25] MEDS: D5W/0.45% SODIUM CHLORIDE 1,000 ML IV SCH (23:34)
[2022-09-25 23:53] VITALS: BP 153/72
[2022-09-26] MEDS: ACETAMINOPHEN TAB 650MG DOSE (2X325MG) PO PRN ×2 (02:22→21:25)
[2022-09-26 04:00] VITALS: BP 130/58
[2022-09-26] MEDS: HEPARIN SOD (PORCINE) 5000UNITS/ML 1ML VIAL/SYRINGE SC SCH ×3 (05:18→21:23)
[2022-09-26 05:43] LABS: BASO # 0.1 10^3/uL (0.0-0.2); BASO % 0.3 % (0.0-1.0); EOS # 0.1 10^3/uL (0.0-0.5); EOS % 0.4 % (0.0-3.0); HEMATOCRIT 35.9 % (36.0-47.0); HEMOGLOBIN 11.3 g/dl (12.0-15.5); LYMPH # 0.5 10^3/uL (1.5-5.0); LYMPH % 2.8 % (24.0-44.0); MEAN CORPUSCULAR HEMOGLOBIN 28.8 pg (27.0-33.0); MEAN CORPUSCULAR HGB CONC 31.5 g/dl (32.0-36.5); MEAN CORPUSCULAR VOLUME 91.6 fl (80.0-96.0); MONO % 5.2 % (2.0-8.0); NEUTROPHILS # 16.6 10^3/uL (1.5-8.5); NEUTROPHILS % 90.9 % (36.0-66.0); PLATELET COUNT, AUTOMATED 682 10^3/uL (150-450); RED BLOOD COUNT 3.92 10^6/uL (4.00-5.40); WHITE BLOOD COUNT 18.3 10^3/uL (4.0-10.0)
[2022-09-26 06:06] LABS: CALCIUM LEVEL 8.5 MG/DL (8.3-10.6); CREATININE FOR GFR 2.05 MG/DL (0.55-1.30); GLOMERULAR FILTRATION RATE 24.8 (>32); PHOSPHORUS LEVEL 3.8 MG/DL (2.4-5.1); POTASSIUM SERUM 5.1 MMOL/L (3.5-5.1)
[2022-09-26 08:11] VITALS: BP 144/82
[2022-09-26] MEDS: PANTOPRAZOLE 40MG TAB (PROTONIX) PO SCH (09:20)
[2022-09-26] MEDS: CYANOCOBALAMIN 500 MCG TAB PO SCH (09:21)
[2022-09-26] MEDS: PARoxetine 10MG TABLET PO SCH (09:21)
[2022-09-26] MEDS: DOCUSATE SODIUM 100MG CAPSULE PO SCH (09:21)
[2022-09-26] MEDS: FERROUS SULFATE 325MG TAB PO SCH (09:21)
[2022-09-26] MEDS: CLINDAMYCIN 150MG CAPSULE PO SCH ×3 (09:21→21:24)
[2022-09-26] MEDS: amLODIPine 5 MG TAB PO SCH (09:21)
[2022-09-26] MEDS: MUPIROCIN 2% OINT 22 GM TUBE TOP SCH ×2 (09:22→21:25)
[2022-09-26] MEDS ORDERED: PILL CUTTER 1 EACH XX PRN (09:45)
[2022-09-26 11:29] VITALS: BP 152/62
[2022-09-26] MEDS: D5W/0.45% SODIUM CHLORIDE 1,000 ML IV SCH (13:40)
[2022-09-26 15:36] VITALS: BP 136/68
[2022-09-26] MEDS: NYSTATIN 100,000 UNITS/GM TOPICAL PWD 15GM TOP SCH ×2 (15:57→21:25)
[2022-09-26] MEDS ORDERED: cefTRIAXone SOD 1 GM in D5W MINI-BAG PLUS 50 ML IV SCH (19:00)
[2022-09-26 20:00] VITALS: BP 147/67
[2022-09-26] MEDS: QUEtiapine FUMARATE 12.5 MG HALF-TAB PO SCH (21:24)
[2022-09-27] VITALS: BP 130/58
[2022-09-27] MEDS: D5W/0.45% SODIUM CHLORIDE 1,000 ML IV SCH (02:30)
[2022-09-27 02:46] VITALS: BP 125/87
[2022-09-27 04:00] VITALS: BP 153/65
[2022-09-27 05:51] LABS: BASO # 0.1 10^3/uL (0.0-0.2); BASO % 0.5 % (0.0-1.0); EOS # 0.4 10^3/uL (0.0-0.5); EOS % 3.2 % (0.0-3.0); LYMPH # 1.1 10^3/uL (1.5-5.0); LYMPH % 8.1 % (24.0-44.0); MEAN CORPUSCULAR HEMOGLOBIN 28.6 pg (27.0-33.0); MEAN CORPUSCULAR HGB CONC 31.4 g/dl (32.0-36.5); MEAN CORPUSCULAR VOLUME 91.1 fl (80.0-96.0); MONO # 0.9 10^3/uL (0.0-0.8); NEUTROPHILS # 10.7 10^3/uL (1.5-8.5); NEUTROPHILS % 80.6 % (36.0-66.0); PLATELET COUNT, AUTOMATED 627 10^3/uL (150-450); RED BLOOD COUNT 3.84 10^6/uL (4.00-5.40); WHITE BLOOD COUNT 13.2 10^3/uL (4.0-10.0)
[2022-09-27] MEDS: HEPARIN SOD (PORCINE) 5000UNITS/ML 1ML VIAL/SYRINGE SC SCH ×3 (06:00→21:34)
[2022-09-27 06:11] LABS: CALCIUM LEVEL 8.7 MG/DL (8.3-10.6); CREATININE FOR GFR 1.66 MG/DL (0.55-1.30); GLOMERULAR FILTRATION RATE 31.6 (>32); POTASSIUM SERUM 4.5 MMOL/L (3.5-5.1)
[2022-09-27 07:41] VITALS: BP 155/67
[2022-09-27] MEDS: CYANOCOBALAMIN 500 MCG TAB PO SCH (08:40)
[2022-09-27] MEDS: FERROUS SULFATE 325MG TAB PO SCH (08:40)
[2022-09-27] MEDS: CLINDAMYCIN 150MG CAPSULE PO SCH ×3 (08:40→21:36)
[2022-09-27] MEDS: PARoxetine 10MG TABLET PO SCH (08:41)
[2022-09-27] MEDS: PANTOPRAZOLE 40MG TAB (PROTONIX) PO SCH (08:41)
[2022-09-27] MEDS: MUPIROCIN 2% OINT 22 GM TUBE TOP SCH ×2 (08:41→21:37)
[2022-09-27] MEDS: DOCUSATE SODIUM 100MG CAPSULE PO SCH (08:41)
[2022-09-27] MEDS: amLODIPine 5 MG TAB PO SCH (08:41)
[2022-09-27] MEDS: NYSTATIN 100,000 UNITS/GM TOPICAL PWD 15GM TOP SCH ×2 (08:42→21:37)
[2022-09-27 11:12] VITALS: BP 144/71
[2022-09-27] MEDS: CEFDINIR 300 MG CAP (OMNICEF) PO SCH ×2 (13:13→21:32)
[2022-09-27 16:10] VITALS: BP 140/92
[2022-09-27] MEDS: ACETAMINOPHEN TAB 650MG DOSE (2X325MG) PO PRN (21:33)
[2022-09-27] MEDS: QUEtiapine FUMARATE 12.5 MG HALF-TAB PO SCH (21:33)
[2022-09-28] VITALS: BP 135/60
[2022-09-28 04:00] VITALS: BP 143/65
[2022-09-28 04:06] LABS: BASO # 0.1 10^3/uL (0.0-0.2); BASO % 0.5 % (0.0-1.0); EOS # 0.3 10^3/uL (0.0-0.5); EOS % 2.8 % (0.0-3.0); HEMATOCRIT 35.2 % (36.0-47.0); HEMOGLOBIN 10.8 g/dl (12.0-15.5); LYMPH # 1.5 10^3/uL (1.5-5.0); LYMPH % 12.3 % (24.0-44.0); MEAN CORPUSCULAR HEMOGLOBIN 28.3 pg (27.0-33.0); MEAN CORPUSCULAR HGB CONC 30.7 g/dl (32.0-36.5); MEAN CORPUSCULAR VOLUME 92.4 fl (80.0-96.0); MONO % 8.4 % (2.0-8.0); NEUTROPHILS # 8.9 10^3/uL (1.5-8.5); NEUTROPHILS % 75.3 % (36.0-66.0); PLATELET COUNT, AUTOMATED 602 10^3/uL (150-450); RED BLOOD COUNT 3.81 10^6/uL (4.00-5.40); WHITE BLOOD COUNT 11.8 10^3/uL (4.0-10.0)
[2022-09-28 04:27] LABS: CALCIUM LEVEL 8.8 MG/DL (8.3-10.6); CREATININE FOR GFR 1.71 MG/DL (0.55-1.30); GLOMERULAR FILTRATION RATE 30.6 (>32); PHOSPHORUS LEVEL 3.4 MG/DL (2.4-5.1); POTASSIUM SERUM 4.6 MMOL/L (3.5-5.1)
[2022-09-28] MEDS: HEPARIN SOD (PORCINE) 5000UNITS/ML 1ML VIAL/SYRINGE SC SCH ×3 (05:17→21:02)
[2022-09-28 07:31] VITALS: BP 134/61
[2022-09-28] MEDS: PANTOPRAZOLE 40MG TAB (PROTONIX) PO SCH ×2 (09:00→09:23)
[2022-09-28] MEDS: FERROUS SULFATE 325MG TAB PO SCH ×2 (09:00→09:23)
[2022-09-28] MEDS: PARoxetine 10MG TABLET PO SCH ×2 (09:00→09:23)
[2022-09-28] MEDS: FUROSEMIDE 20 MG TAB PO SCH (09:23)
[2022-09-28] MEDS: CYANOCOBALAMIN 500 MCG TAB PO SCH (09:23)
[2022-09-28] MEDS: CLINDAMYCIN 150MG CAPSULE PO SCH ×3 (09:23→21:01)
[2022-09-28] MEDS: CEFDINIR 300 MG CAP (OMNICEF) PO SCH ×2 (09:23→21:01)
[2022-09-28] MEDS: DOCUSATE SODIUM 100MG CAPSULE PO SCH (09:23)
[2022-09-28] MEDS: NYSTATIN 100,000 UNITS/GM TOPICAL PWD 15GM TOP SCH ×2 (09:24→21:02)
[2022-09-28] MEDS: amLODIPine 5 MG TAB PO SCH (09:24)
[2022-09-28] MEDS: MUPIROCIN 2% OINT 22 GM TUBE TOP SCH ×2 (09:24→21:03)
[2022-09-28 11:13] VITALS: BP 134/76
[2022-09-28 15:36] VITALS: BP 136/62
[2022-09-28 20:15] VITALS: BP 143/61
[2022-09-28] MEDS: QUEtiapine FUMARATE 12.5 MG HALF-TAB PO SCH (21:01)
[2022-09-29 00:16] VITALS: BP 146/66
[2022-09-29 04:03] VITALS: BP 135/63
[2022-09-29 04:45] LABS: BASO # 0.1 10^3/uL (0.0-0.2); BASO % 0.7 % (0.0-1.0); EOS # 0.6 10^3/uL (0.0-0.5); EOS % 5.1 % (0.0-3.0); HEMATOCRIT 34.9 % (36.0-47.0); HEMOGLOBIN 10.7 g/dl (12.0-15.5); LYMPH # 1.9 10^3/uL (1.5-5.0); LYMPH % 16.9 % (24.0-44.0); MEAN CORPUSCULAR HGB CONC 30.7 g/dl (32.0-36.5); MEAN CORPUSCULAR VOLUME 91.4 fl (80.0-96.0); MONO % 9.3 % (2.0-8.0); NEUTROPHILS # 7.4 10^3/uL (1.5-8.5); NEUTROPHILS % 67.5 % (36.0-66.0); PLATELET COUNT, AUTOMATED 615 10^3/uL (150-450); RED BLOOD COUNT 3.82 10^6/uL (4.00-5.40)
[2022-09-29 05:11] LABS: CALCIUM LEVEL 8.6 MG/DL (8.3-10.6); CREATININE FOR GFR 1.8 MG/DL (0.55-1.30); GLOMERULAR FILTRATION RATE 28.8 (>32); MAGNESIUM LEVEL 1.9 MG/DL (1.8-2.4); POTASSIUM SERUM 4.8 MMOL/L (3.5-5.1)
[2022-09-29] MEDS: HEPARIN SOD (PORCINE) 5000UNITS/ML 1ML VIAL/SYRINGE SC SCH ×3 (07:16→21:00)
[2022-09-29 08:00] VITALS: BP 137/62
[2022-09-29] MEDS: CLINDAMYCIN 150MG CAPSULE PO SCH ×3 (08:29→20:59)
[2022-09-29] MEDS: CEFDINIR 300 MG CAP (OMNICEF) PO SCH ×2 (08:29→21:00)
[2022-09-29] MEDS: FUROSEMIDE 20 MG TAB PO SCH (08:29)
[2022-09-29] MEDS: FERROUS SULFATE 325MG TAB PO SCH (08:30)
[2022-09-29] MEDS: NYSTATIN 100,000 UNITS/GM TOPICAL PWD 15GM TOP SCH ×2 (08:30→20:59)
[2022-09-29] MEDS: amLODIPine 5 MG TAB PO SCH (08:30)
[2022-09-29] MEDS: CYANOCOBALAMIN 500 MCG TAB PO SCH (08:30)
[2022-09-29] MEDS: PARoxetine 10MG TABLET PO SCH (08:30)
[2022-09-29] MEDS: DOCUSATE SODIUM 100MG CAPSULE PO SCH (08:30)
[2022-09-29] MEDS: PANTOPRAZOLE 40MG TAB (PROTONIX) PO SCH (08:30)
[2022-09-29] MEDS: MUPIROCIN 2% OINT 22 GM TUBE TOP SCH ×2 (08:31→20:59)
[2022-09-29 12:00] VITALS: BP 131/55
[2022-09-29 16:00] VITALS: BP 138/60
[2022-09-29 20:00] VITALS: BP 133/62
[2022-09-29] MEDS: QUEtiapine FUMARATE 12.5 MG HALF-TAB PO SCH (20:59)
[2022-09-30 04:00] VITALS: BP 129/60
[2022-09-30 05:09] LABS: BASO # 0.1 10^3/uL (0.0-0.2); BASO % 0.7 % (0.0-1.0); EOS # 0.7 10^3/uL (0.0-0.5); EOS % 6.5 % (0.0-3.0); HEMATOCRIT 31.9 % (36.0-47.0); HEMOGLOBIN 9.9 g/dl (12.0-15.5); LYMPH # 1.9 10^3/uL (1.5-5.0); LYMPH % 18.3 % (24.0-44.0); MEAN CORPUSCULAR HEMOGLOBIN 28.2 pg (27.0-33.0); MEAN CORPUSCULAR VOLUME 90.9 fl (80.0-96.0); MONO # 0.8 10^3/uL (0.0-0.8); MONO % 7.1 % (2.0-8.0); NEUTROPHILS # 7.1 10^3/uL (1.5-8.5); NEUTROPHILS % 66.7 % (36.0-66.0); PLATELET COUNT, AUTOMATED 613 10^3/uL (150-450); RED BLOOD COUNT 3.51 10^6/uL (4.00-5.40); WHITE BLOOD COUNT 10.6 10^3/uL (4.0-10.0)
[2022-09-30 05:38] LABS: CREATININE FOR GFR 1.81 MG/DL (0.55-1.30); GLOMERULAR FILTRATION RATE 28.6 (>32); POTASSIUM SERUM 4.8 MMOL/L (3.5-5.1)
[2022-09-30] MEDS: HEPARIN SOD (PORCINE) 5000UNITS/ML 1ML VIAL/SYRINGE SC SCH ×3 (06:15→21:20)
[2022-09-30 08:00] VITALS: BP 140/60
[2022-09-30] MEDS: CYANOCOBALAMIN 500 MCG TAB PO SCH (09:51)
[2022-09-30] MEDS: PANTOPRAZOLE 40MG TAB (PROTONIX) PO SCH (09:52)
[2022-09-30] MEDS: DOCUSATE SODIUM 100MG CAPSULE PO SCH (09:52)
[2022-09-30] MEDS: amLODIPine 5 MG TAB PO SCH (09:52)
[2022-09-30] MEDS: FERROUS SULFATE 325MG TAB PO SCH (09:52)
[2022-09-30] MEDS: NYSTATIN 100,000 UNITS/GM TOPICAL PWD 15GM TOP SCH ×2 (09:53→21:23)
[2022-09-30] MEDS: CEFDINIR 300 MG CAP (OMNICEF) PO SCH ×2 (09:54→21:20)
[2022-09-30] MEDS: MUPIROCIN 2% OINT 22 GM TUBE TOP SCH ×2 (09:54→21:22)
[2022-09-30] MEDS: FUROSEMIDE 20 MG TAB PO SCH (09:58)
[2022-09-30] MEDS: PARoxetine 10MG TABLET PO SCH (10:33)
[2022-09-30] MEDS: CLINDAMYCIN 150MG CAPSULE PO SCH ×2 (10:34→16:43)
[2022-09-30] MEDS: MIRALAX *UNIT DOSE* 17GM PACKET PO SCH (11:17)
[2022-09-30 16:00] VITALS: BP 138/82
[2022-09-30 20:00] VITALS: BP 136/63
[2022-09-30] MEDS: QUEtiapine FUMARATE 12.5 MG HALF-TAB PO SCH (21:20)
[2022-09-30] MEDS: ACETAMINOPHEN TAB 650MG DOSE (2X325MG) PO PRN (21:21)
[2022-10-01 04:00] VITALS: BP 133/59
[2022-10-01] MEDS ORDERED: HEPARIN SOD (PORCINE) 5000UNITS/ML 1ML VIAL/SYRINGE As Ordered ONE (05:45)
[2022-10-01 05:56] LABS: BASO # 0.1 10^3/uL (0.0-0.2); BASO % 0.7 % (0.0-1.0); EOS # 0.7 10^3/uL (0.0-0.5); EOS % 7.1 % (0.0-3.0); HEMATOCRIT 32.9 % (36.0-47.0); HEMOGLOBIN 10.2 g/dl (12.0-15.5); LYMPH % 20.9 % (24.0-44.0); MEAN CORPUSCULAR VOLUME 90.4 fl (80.0-96.0); MONO # 0.7 10^3/uL (0.0-0.8); NEUTROPHILS # 6.1 10^3/uL (1.5-8.5); NEUTROPHILS % 63.5 % (36.0-66.0); PLATELET COUNT, AUTOMATED 557 10^3/uL (150-450); RED BLOOD COUNT 3.64 10^6/uL (4.00-5.40); WHITE BLOOD COUNT 9.6 10^3/uL (4.0-10.0)
[2022-10-01] MEDS: HEPARIN SOD (PORCINE) 5000UNITS/ML 1ML VIAL/SYRINGE SC SCH ×3 (05:59→21:57)
[2022-10-01 06:00] LABS: CALCIUM LEVEL 8.3 MG/DL (8.3-10.6); CREATININE FOR GFR 1.82 MG/DL (0.55-1.30); GLOMERULAR FILTRATION RATE 28.5 (>32); POTASSIUM SERUM 4.6 MMOL/L (3.5-5.1)
[2022-10-01 07:34] VITALS: BP 130/60
[2022-10-01] MEDS: PARoxetine 10MG TABLET PO SCH (09:56)
[2022-10-01] MEDS: amLODIPine 5 MG TAB PO SCH (09:56)
[2022-10-01] MEDS: MIRALAX *UNIT DOSE* 17GM PACKET PO SCH (09:56)
[2022-10-01] MEDS: CEFDINIR 300 MG CAP (OMNICEF) PO SCH ×2 (09:57→21:59)
[2022-10-01] MEDS: FUROSEMIDE 20 MG TAB PO SCH (09:57)
[2022-10-01] MEDS: FERROUS SULFATE 325MG TAB PO SCH (09:57)
[2022-10-01] MEDS: PANTOPRAZOLE 40MG TAB (PROTONIX) PO SCH (09:57)
[2022-10-01] MEDS: DOCUSATE SODIUM 100MG CAPSULE PO SCH (09:57)
[2022-10-01] MEDS: CYANOCOBALAMIN 500 MCG TAB PO SCH (09:57)
[2022-10-01] MEDS: MUPIROCIN 2% OINT 22 GM TUBE TOP SCH ×2 (09:58→21:59)
[2022-10-01] MEDS: NYSTATIN 100,000 UNITS/GM TOPICAL PWD 15GM TOP SCH ×2 (09:58→21:59)
[2022-10-01 12:00] VITALS: BP 119/65
[2022-10-01 20:00] VITALS: BP 141/60
[2022-10-01] MEDS: ACETAMINOPHEN TAB 650MG DOSE (2X325MG) PO PRN (21:59)
[2022-10-01] MEDS: QUEtiapine FUMARATE 12.5 MG HALF-TAB PO SCH (22:00)
[2022-10-02] VITALS: BP 115/57
[2022-10-02 04:00] VITALS: BP 121/58
[2022-10-02 05:18] LABS: BASO # 0.1 10^3/uL (0.0-0.2); BASO % 0.9 % (0.0-1.0); EOS # 0.7 10^3/uL (0.0-0.5); HEMATOCRIT 32.8 % (36.0-47.0); HEMOGLOBIN 10.4 g/dl (12.0-15.5); LYMPH # 2.2 10^3/uL (1.5-5.0); LYMPH % 22.7 % (24.0-44.0); MEAN CORPUSCULAR HEMOGLOBIN 28.8 pg (27.0-33.0); MEAN CORPUSCULAR HGB CONC 31.7 g/dl (32.0-36.5); MEAN CORPUSCULAR VOLUME 90.9 fl (80.0-96.0); MONO # 0.7 10^3/uL (0.0-0.8); MONO % 7.5 % (2.0-8.0); NEUTROPHILS # 5.8 10^3/uL (1.5-8.5); NEUTROPHILS % 61.1 % (36.0-66.0); PLATELET COUNT, AUTOMATED 544 10^3/uL (150-450); RED BLOOD COUNT 3.61 10^6/uL (4.00-5.40); WHITE BLOOD COUNT 9.5 10^3/uL (4.0-10.0)
[2022-10-02] MEDS: HEPARIN SOD (PORCINE) 5000UNITS/ML 1ML VIAL/SYRINGE SC SCH (05:34)
[2022-10-02 05:45] LABS: CALCIUM LEVEL 8.5 MG/DL (8.3-10.6); CREATININE FOR GFR 1.89 MG/DL (0.55-1.30); GLOMERULAR FILTRATION RATE 27.2 (>32); POTASSIUM SERUM 4.6 MMOL/L (3.5-5.1)
[2022-10-02 07:33] VITALS: BP 142/65
[2022-10-02] MEDS ORDERED: CEFD300CAP PO (09:26)
[2022-10-02] MEDS ORDERED: AMLO1TAB24 PO (09:26)
[2022-10-02] MEDS ORDERED: QUET1TAB17 PO (09:26)
[2022-10-02] MEDS: MUPIROCIN 2% OINT 22 GM TUBE TOP SCH (09:28)
[2022-10-02] MEDS: MIRALAX *UNIT DOSE* 17GM PACKET PO SCH (09:28)
[2022-10-02] MEDS: CEFDINIR 300 MG CAP (OMNICEF) PO SCH (09:29)
[2022-10-02] MEDS: PARoxetine 10MG TABLET PO SCH (09:29)
[2022-10-02] MEDS: NYSTATIN 100,000 UNITS/GM TOPICAL PWD 15GM TOP SCH (09:29)
[2022-10-02 09:30] VITALS: BP 142/65
[2022-10-02] MEDS: PANTOPRAZOLE 40MG TAB (PROTONIX) PO SCH (09:30)
[2022-10-02] MEDS: DOCUSATE SODIUM 100MG CAPSULE PO SCH (09:30)
[2022-10-02] MEDS: FUROSEMIDE 20 MG TAB PO SCH (09:30)
[2022-10-02] MEDS: amLODIPine 5 MG TAB PO SCH (09:30)
[2022-10-02] MEDS: CYANOCOBALAMIN 500 MCG TAB PO SCH (09:30)
[2022-10-02] MEDS: FERROUS SULFATE 325MG TAB PO SCH (09:30)
[2022-10-02] MEDS ORDERED: QUEtiapine FUMARATE 25 MG TAB PO SCH (21:00)
== END 2022-10-02 12:35 | DRG 682 ==
LOC: M ED 12:11 → M ED INP 15:59 → ENRESERV 16:55 → M PCU 20:06
PROVIDERS: ADMIT Internal Medicine; ATTEND Internal Medicine
DX: N17.9 Acute kidney failure, unspecified (principal); G93.41 Metabolic encephalopathy; N39.0 Urinary tract infection, site not specified; Q60.0 Renal agenesis, unilateral; I12.9 Hypertensive chronic kidney disease with stage 1 through stage 4 chronic kidney disease, or unspecified chronic kidney disease; N18.32 Chronic kidney disease, stage 3b; Z85.828 Personal history of other malignant neoplasm of skin; H54.8 Legal blindness, as defined in USA; Z66 Do not resuscitate; F03.90 Unspecified dementia, unspecified severity, without behavioral disturbance, psychotic disturbance, mood disturbance, and anxiety; K21.9 Gastro-esophageal reflux disease without esophagitis; I71.40 Abdominal aortic aneurysm, without rupture, unspecified; M17.11 Unilateral primary osteoarthritis, right knee; D64.9 Anemia, unspecified; F39 Unspecified mood [affective] disorder; F41.9 Anxiety disorder, unspecified; Z90.49 Acquired absence of other specified parts of digestive tract; Z87.891 Personal history of nicotine dependence; E86.0 Dehydration; E87.5 Hyperkalemia; D72.829 Elevated white blood cell count, unspecified; D69.6 Thrombocytopenia, unspecified; Z20.822 Contact with and (suspected) exposure to COVID-19; Z79.82 Long term (current) use of aspirin; Z79.899 Other long term (current) drug therapy

== ENCOUNTER → 2024-02-07 | Outpatient (REF) ==
[~2024-02-07] MED LIST changes: +AMLO1TAB24 PO; +BACI500O60 TOP; +CEFD1CAP9 PO; -CEFD300C41 PO; +CEFD300CAP PO; +CELE1CAP99 PO; +CLIN-250 PO; +CRAN500C11 PO; -CVS500CA5 PO; +CYAN-1 PO; +DOCU100C16 PO; +FEOS200T2 PO; +FLUO-365 PO; -FLUO20CA22 PO; +GABA-282 PO; +LUBROIN4 OP; +ONDA-282 PO; +PANT-23 PO; +PARO5TAB PO; +PEPE50CA PO; +[UNRECOGNIZED DRUG - CODE] TOP
[2024-02-07 12:28] LABS: HEMATOCRIT 38.3 % (36.0-47.0); HEMOGLOBIN 12.3 g/dl (12.0-15.5); MEAN CORPUSCULAR HEMOGLOBIN 31.2 pg (27.0-33.0); MEAN CORPUSCULAR HGB CONC 32.1 g/dl (32.0-36.5); MEAN CORPUSCULAR VOLUME 97.2 fl (80.0-96.0); PLATELET COUNT, AUTOMATED 501 10^3/uL (150-450); RED BLOOD COUNT 3.94 10^6/uL (4.00-5.40); WHITE BLOOD COUNT 9.6 10^3/uL (4.0-10.0)
[2024-02-07 13:08] LABS: CALCIUM LEVEL 8.9 MG/DL (8.3-10.6); CREATININE FOR GFR 1.72 MG/DL (0.55-1.30); GLOMERULAR FILTRATION RATE 30.2 (>32); POTASSIUM SERUM 5.3 MMOL/L (3.5-5.1)
== END ==
PROVIDERS: ATTEND Physician Assistant
DX: I10 Essential (primary) hypertension (principal)

== ENCOUNTER → 2024-02-14 | Outpatient (REF) ==
[2024-02-14 11:58] LABS: HEMATOCRIT 39.1 % (36.0-47.0); HEMOGLOBIN 12.5 g/dl (12.0-15.5); MEAN CORPUSCULAR HEMOGLOBIN 31.6 pg (27.0-33.0); MEAN CORPUSCULAR VOLUME 98.7 fl (80.0-96.0); PLATELET COUNT, AUTOMATED 644 10^3/uL (150-450); RED BLOOD COUNT 3.96 10^6/uL (4.00-5.40); WHITE BLOOD COUNT 16.3 10^3/uL (4.0-10.0)
[2024-02-14 12:49] LABS: CALCIUM LEVEL 9.3 MG/DL (8.3-10.6); CREATININE FOR GFR 1.74 MG/DL (0.55-1.30); GLOMERULAR FILTRATION RATE 29.8 (>32); POTASSIUM SERUM 6.1 MMOL/L (3.5-5.1)
== END ==
PROVIDERS: ATTEND Physician Assistant
DX: I10 Essential (primary) hypertension (principal)

== ENCOUNTER → 2024-02-15 | Outpatient (REF) | PROVIDERS: ATTEND Physician Assistant | DX: E87.6 Hypokalemia (principal); Z53.8 Procedure and treatment not carried out for other reasons ==

== ENCOUNTER → 2024-02-16 | Outpatient (REF) ==
[2024-02-16 11:22] LABS: HEMATOCRIT 39.1 % (36.0-47.0); HEMOGLOBIN 12.6 g/dl (12.0-15.5); MEAN CORPUSCULAR HEMOGLOBIN 30.9 pg (27.0-33.0); MEAN CORPUSCULAR HGB CONC 32.2 g/dl (32.0-36.5); MEAN CORPUSCULAR VOLUME 95.8 fl (80.0-96.0); PLATELET COUNT, AUTOMATED 649 10^3/uL (150-450); RED BLOOD COUNT 4.08 10^6/uL (4.00-5.40); WHITE BLOOD COUNT 15.7 10^3/uL (4.0-10.0)
== END ==
PROVIDERS: ATTEND Physician Assistant
DX: E87.6 Hypokalemia (principal)

== ENCOUNTER → 2024-03-10 | Outpatient (CLI) | payer MEDICARE, OTHER | LOC: M SOG 07:55 | PROVIDERS: ATTEND Orthopaedic Surgery | DX: M19.021 Primary osteoarthritis, right elbow (principal) ==

== ENCOUNTER → 2024-03-13 | Outpatient (REF) ==
[2024-03-13 12:21] LABS: HEMATOCRIT 36.9 % (36.0-47.0); HEMOGLOBIN 11.5 g/dl (12.0-15.5); MEAN CORPUSCULAR HEMOGLOBIN 31.3 pg (27.0-33.0); MEAN CORPUSCULAR HGB CONC 31.2 g/dl (32.0-36.5); MEAN CORPUSCULAR VOLUME 100.5 fl (80.0-96.0); PLATELET COUNT, AUTOMATED 736 10^3/uL (150-450); RED BLOOD COUNT 3.67 10^6/uL (4.00-5.40); WHITE BLOOD COUNT 15.7 10^3/uL (4.0-10.0)
[2024-03-13 12:54] LABS: CALCIUM LEVEL 8.9 MG/DL (8.3-10.6); CREATININE FOR GFR 1.6 MG/DL (0.55-1.30); GLOMERULAR FILTRATION RATE 32.9 (>32); POTASSIUM SERUM 5.8 MMOL/L (3.5-5.1)
== END ==
PROVIDERS: ATTEND Internal Medicine
DX: I10 Essential (primary) hypertension (principal)

== ENCOUNTER → 2024-04-19 | Outpatient (REF) | payer MEDICARE ==
[~2024-04-19] MED LIST changes: -CRAN500C11 PO; +CVS500CA5 PO; +GABA-1172 PO; -GABA-282 PO
[2024-04-19 10:21] LABS: HEMATOCRIT 33.5 % (36.0-47.0); HEMOGLOBIN 10.7 g/dl (12.0-15.5); MEAN CORPUSCULAR HEMOGLOBIN 31.9 pg (27.0-33.0); MEAN CORPUSCULAR HGB CONC 31.9 g/dl (32.0-36.5); PLATELET COUNT, AUTOMATED 639 10^3/uL (150-450); RED BLOOD COUNT 3.35 10^6/uL (4.00-5.40); WHITE BLOOD COUNT 12.9 10^3/uL (4.0-10.0)
[2024-04-19 10:49] LABS: CALCIUM LEVEL 9.1 MG/DL (8.3-10.6); CREATININE FOR GFR 1.76 MG/DL (0.55-1.30); GLOMERULAR FILTRATION RATE 29.4 (>32); POTASSIUM SERUM 5.4 MMOL/L (3.5-5.1)
== END ==
PROVIDERS: ATTEND Internal Medicine
DX: I10 Essential (primary) hypertension (principal)

== ENCOUNTER → 2024-04-20 | Outpatient (REF) | payer MEDICARE, OTHER ==
[~2024-04-20] MED LIST changes: +CRAN500C11 PO; -CVS500CA5 PO; -GABA-1172 PO; +GABA-282 PO
== END ==
PROVIDERS: ATTEND Physician Assistant
DX: E86.0 Dehydration (principal); Z53.8 Procedure and treatment not carried out for other reasons

== ENCOUNTER → 2024-04-21 | Outpatient (REF) | payer MEDICARE, OTHER ==
[2024-04-21 07:57] LABS: CALCIUM LEVEL 8.7 MG/DL (8.3-10.6); CREATININE FOR GFR 1.68 MG/DL (0.55-1.30); GLOMERULAR FILTRATION RATE 31.1 (>32); POTASSIUM SERUM 4.9 MMOL/L (3.5-5.1)
== END ==
PROVIDERS: ATTEND Internal Medicine
DX: E86.0 Dehydration (principal)

== ENCOUNTER → 2024-05-15 | Outpatient (REF) | payer MEDICARE, OTHER ==
[2024-05-15 09:34] LABS: HEMATOCRIT 32.2 % (36.0-47.0); HEMOGLOBIN 10.1 g/dl (12.0-15.5); MEAN CORPUSCULAR HEMOGLOBIN 31.1 pg (27.0-33.0); MEAN CORPUSCULAR HGB CONC 31.4 g/dl (32.0-36.5); MEAN CORPUSCULAR VOLUME 99.1 fl (80.0-96.0); PLATELET COUNT, AUTOMATED 686 10^3/uL (150-450); RED BLOOD COUNT 3.25 10^6/uL (4.00-5.40); WHITE BLOOD COUNT 13.3 10^3/uL (4.0-10.0)
[2024-05-15 09:51] LABS: CREATININE FOR GFR 1.62 MG/DL (0.55-1.30); GLOMERULAR FILTRATION RATE 32.4 (>32); POTASSIUM SERUM 5.4 MMOL/L (3.5-5.1)
== END ==
PROVIDERS: ATTEND Internal Medicine
DX: I10 Essential (primary) hypertension (principal)

== ENCOUNTER → 2024-05-17 | Outpatient (REF) | payer MEDICARE, OTHER ==
[2024-05-17 11:21] LABS: CALCIUM LEVEL 9.2 MG/DL (8.3-10.6); CREATININE FOR GFR 1.7 MG/DL (0.55-1.30); GLOMERULAR FILTRATION RATE 30.6 (>32); POTASSIUM SERUM 5.5 MMOL/L (3.5-5.1)
== END ==
PROVIDERS: ATTEND Physician Assistant
DX: E87.5 Hyperkalemia (principal)

== ENCOUNTER 2024-06-06 13:16 | Emergency (ER) | payer MEDICARE, OTHER ==
[2024-06-06] VITALS (8 sets, daily range): BP systolic 165–209; BP diastolic 56–84; TEMP 98.8–99.4; O2SAT 95–97
[~2024-06-06 13:16] MED LIST changes: -CRAN500C11 PO; +CVS500CA5 PO; +GABA-1172 PO; -GABA-282 PO
[2024-06-06 14:00] LABS: BASO # 0.1 10^3/uL (0.0-0.2); BASO % 0.5 % (0.0-1.0); EOS # 0.4 10^3/uL (0.0-0.5); EOS % 2.1 % (0.0-3.0); HEMATOCRIT 36.6 % (36.0-47.0); HEMOGLOBIN 11.8 g/dl (12.0-15.5); LYMPH # 1.4 10^3/uL (1.5-5.0); LYMPH % 7.5 % (24.0-44.0); MEAN CORPUSCULAR HEMOGLOBIN 31.4 pg (27.0-33.0); MEAN CORPUSCULAR HGB CONC 32.2 g/dl (32.0-36.5); MEAN CORPUSCULAR VOLUME 97.3 fl (80.0-96.0); MONO # 0.9 10^3/uL (0.0-0.8); MONO % 4.6 % (2.0-8.0); NEUTROPHILS # 15.5 10^3/uL (1.5-8.5); NEUTROPHILS % 84.8 % (36.0-66.0); PLATELET COUNT, AUTOMATED 937 10^3/uL (150-450); RED BLOOD COUNT 3.76 10^6/uL (4.00-5.40); WHITE BLOOD COUNT 18.3 10^3/uL (4.0-10.0)
[2024-06-06 14:13] LABS: INR 1.17; PARTIAL THROMBOPLASTIN TIME 32.8 SECONDS (24.8-34.2); PROTHROMBIN TIME 14.5 SECONDS (12.5-14.5)
[2024-06-06 14:20] LABS: ALBUMIN 3.9 G/DL (3.2-5.2); ALKALINE PHOSPHATASE 93 U/L (46-116); ALT/SGPT 14 U/L (7.0-40); AST/SGOT 18 U/L (<34); BILIRUBIN,DIRECT < 0.1 MG/DL (<0.4); BILIRUBIN,TOTAL 0.3 MG/DL (0.3-1.2); BLOOD UREA NITROGEN 65 MG/DL (9-23); CALCIUM LEVEL 9.8 MG/DL (8.3-10.6); CARBON DIOXIDE LEVEL 26 MMOL/L (20-31); CHLORIDE LEVEL 105 MMOL/L (98-107); CREATININE FOR GFR 1.67 MG/DL (0.55-1.30); GLOMERULAR FILTRATION RATE 31.3 (>32); GLUCOSE, FASTING 121 MG/DL (74-106); POTASSIUM SERUM 5.7 MMOL/L (3.5-5.1); SODIUM LEVEL 138 MMOL/L (136-145); VENOUS BASE EXCESS -2.1 (-2.0-2.0); VENOUS HCO3 23.2 MMOL/L (23.0-27.0); VENOUS O2 SATURATION 97.7 % (60.0-80.0); VENOUS PARTIAL PRESSURE CO2 42.1 mmHg (38.0-50.0); VENOUS PARTIAL PRESSURE O2 99.6 mmHg (30.0-50.0); VENOUS STANDARD HCO3 22.7 MMOL/L; VENOUS TOTAL CO2 24.5 MMOL/L (24.0-28.0)
[2024-06-06 14:23] LABS: THYROID STIMULATING HORMONE 1.649 uIU/ML (0.55-4.78)
[2024-06-06 15:37] LABS: OSMOLALITY SERUM 321 MOSM/KG (280-301)
[2024-06-06] MEDS: cefTRIAXone SOD 1 GM in D5W MINI-BAG PLUS 50 ML IV ONE (17:16)
[2024-06-06] MEDS ORDERED: NS 1,000 ML IV SCH (17:30)
== END 2024-06-06 18:29 | disposition short-term general hospital (02) ==
LOC: M ED 13:16 → EDBD 13:16 → M ED 18:29
DX: I63.9 Cerebral infarction, unspecified (principal); I65.22 Occlusion and stenosis of left carotid artery; I66.02 Occlusion and stenosis of left middle cerebral artery; R00.0 Tachycardia, unspecified; I44.0 Atrioventricular block, first degree; I45.10 Unspecified right bundle-branch block; I10 Essential (primary) hypertension; N18.30 Chronic kidney disease, stage 3 unspecified; Z87.891 Personal history of nicotine dependence; Z80.0 Family history of malignant neoplasm of digestive organs; Z88.7 Allergy status to serum and vaccine; Z79.899 Other long term (current) drug therapy; Z79.2 Long term (current) use of antibiotics
CPT/HCPCS: 70450; 70544; 70551; 71045; 80047; 80048; 80076; 81001; 82140; 82803; 83605; 83930; 84132; 84443; 85025; 85610; 85730; 87040; 87088; 87186; 87486; 87581; 87633; 87798; 93005; 93041; 94760; 96374; 99285; J0696

== ENCOUNTER → 2024-06-14 | Outpatient (REF) | payer MEDICARE, OTHER | PROVIDERS: ATTEND Internal Medicine | DX: I10 Essential (primary) hypertension (principal); Z53.8 Procedure and treatment not carried out for other reasons ==